=== PATIENT | female | born 1955 | race Two or more races ===

== ENCOUNTER → 2024-10-03 | Outpatient (CLI) | payer MEDICARE, BC, SELFPAY ==
[2024-10-03 08:51] LABS: Basophils # (Auto) 0.1 Thou/mm3 (0.0-0.2); Basophils % (Auto) 1 % (0-2.5); Eosinophils # (Auto) 0.2 Thou/mm3 (0.0-0.5); Eosinophils % (Auto) 2 % (0-10); Hematocrit 43.3 % (36.0-46.0); Hemoglobin 14.1 g/dL (12.0-16.0); Immature Granulocytes % (Auto) 0 % (0-0); Immature Granulocytes Auto 0.03 Thou/mm3 (0.00-0.00); Lymphocytes # (Auto) 2.3 Thou/mm3 (1.0-4.8); Lymphocytes % (Auto) 27 % (10-50); Mean Corpuscular HGB Conc 32.6 g/dl (31.0-37.0); Mean Corpuscular Hemoglobin 25.3 pg (25.0-35.0); Mean Corpuscular Volume 78 fL (80-100); Monocytes # (Auto) 0.5 Thou/mm3 (0.0-0.8); Monocytes % (Auto) 7 % (0-12); Neutrophils # (Auto) 5.2 Thou/mm3 (1.8-7.7); Neutrophils % (Auto) 63 % (37-80); Nucleated Red Blood Cell % 0 /100 WBC (0); Platelet Count 329 Thou/mm3 (140-440); Red Blood Count 5.58 Miln/mm3 (4.00-5.20); White Blood Count 8.3 Thou/mm3 (3.6-11.0)
[2024-10-03 09:04] LABS: Glucose Estimated Average 105 mg/dL (80-131); Hemoglobin A1C 5.3 % Hgb (4.8-6.0)
[2024-10-03 09:30] LABS: Alanine Aminotransferase 13 U/L (10-49); Albumin, Serum 4.4 gm/dL (3.4-4.8); Albumin/Globulin Ratio 1.6 (1.2-2.2); Alkaline Phosphatase 158 U/L (46-116); Anion Gap 6 (7-16); BUN/Creatinine Ratio 21 Ratio (12-20); Bilirubin,Direct 0.5 mg/dL (0.0-0.3); Bilirubin,Total 1.8 mg/dL (0.3-1.2); Blood Urea Nitrogen 17 mg/dL (9-23); Calcium 9.7 mg/dL (8.3-10.6); Calcium (Corrected) 9.7 mg/dL (8.5-10.1); Carbon Dioxide 26.7 mMol/L (20.0-31.0); Cardiac Risk Estimate 3.8 RATIO (3.7-5.6); Chloride 107 mMol/L (98-107); Cholesterol 180 mg/dL (132-200); Creatinine (Component) 0.8 mg/dL (0.6-1.3); Globulin 2.8 gm/dL (2.3-3.5); Glucose 107 mg/dL (74-106); HDL Cholesterol 48 mg/dL (40-60); LDL Cholesterol,Calculated 103 mg/dL (0-130); Osmolality,Calculated 280 (275-295); Potassium 4.2 mMol/L (3.4-5.1); Sodium 140 mMol/L (136-145); Total Protein 7.2 gm/dL (5.7-8.2); Triglycerides 146 mg/dL (30-150); eGFR > 60 See Note
[2024-10-03 09:38] LABS: Aspartate Amino Transferase 15 U/L (0-34)
== END | disposition home or self-care (01) ==
LOC: COPL 07:09
PROVIDERS: PCP Family Medicine; Referring Provider Student in an Organized Health Care Education/Training Program; Visit Provider Student in an Organized Health Care Education/Training Program
DX: B35.1 Tinea unguium (principal); I10 Essential (primary) hypertension
CPT/HCPCS: 36415; 80053; 80061; 82248; 83036; 85025

== ENCOUNTER → 2024-11-06 | Outpatient (CLI) | payer MEDICARE, BC, SELFPAY ==
--- NOTE | 2024-11-06 08:45 | XR_ITS ---
Examination: Screening digital mammography, bilateral Computer aided detection 3-D breast Tomosynthesis, bilateral Date and time of exam: November 06, 2024 0830 hours Compared to mammograms dating to December 11, 2011 Indication: Screening Technique: Nonmagnified MLO, CC views of the breasts to been obtained, reconstructed from 3-D Tomosynthesis images. R2 computer aided detection program utilized for evaluation of suspicious masses and/or abnormal calcifications. 3-D Tomosynthesis images obtained. Findings: Scattered areas of fibroglandular density Bilateral benign skin lesions 10 mm nodule retroareolar region right breast, partially indistinct margins Impression: BI-RADS Category 0: Incomplete: Need additional imaging evaluation Recommend follow-up spot tomographic views retroareolar nodule right breast, right breast sonography to complete the workup
== END | disposition home or self-care (01) ==
LOC: CDIM 08:19
PROVIDERS: Referring Provider Family Medicine; Visit Provider Family Medicine
DX: Z12.31 Encounter for screening mammogram for malignant neoplasm of breast (principal); R92.8 Other abnormal and inconclusive findings on diagnostic imaging of breast; N63.41 Unspecified lump in right breast, subareolar
CPT/HCPCS: 77063; 77067

== ENCOUNTER 2024-11-21 01:37 | Observation (INO) | payer MEDICARE, BC, SELFPAY ==
[2024-11-21] VITALS (33 sets, daily range): BP systolic 92–255; BP diastolic 53–143; PULSE 69–91; RESP 12–26; TEMP 36–36.9; O2SAT 89–99; BMI 33.2
--- NOTE | 2024-11-21 01:40 | EKG_ITS ---
[facility] Test Date: 2024-11-21 Pat Name: KULWANT AMEZCUA Department: Room: - Gender: Female Corporate Quality Engineer: : 1955 Requested By: ED Temporary Provider Order Number: [id number] Reading MD: ED Temporary Provider Measurements Intervals [place] Rate: 73 P: 51 GA: 180 QRS: -12 QRSD: 91 T: 28 QT: 371 QTc: 411 Interpretive Statements SINUS RHYTHM POSSIBLE ANTERIOR MYOCARDIAL INFARCTION , PROBABLY OLD [30 ms Q WAVE IN V3/V4, OR R < 0.2 mV IN V4] No previous ECG available for comparison /store/S0/[id number].pdf
--- NOTE | 2024-11-21 01:54 | PD.EDRME ---
Rapid Medical Screening Exam E Arrival date/time: 11/21/24 01:37 69-year-old female with past medical history of hypertension and paternal history of [place] presents emergency department complaining of chest pain that radiates to left arm and upper neck that started at midnight today. Chief Complaint: Chest Pain Vital signs: Vital Signs Temperature 98.3 F 11/21/24 01:48 Pulse Rate 77 11/21/24 01:48 Respiratory Rate 18 11/21/24 01:48 Blood Pressure 209/113 H 11/21/24 01:48 Pulse Oximetry (%) 98 11/21/24 01:48 Oxygen Delivery Method Room Air 11/21/24 01:48 Vital signs reviewed by provider: Yes
--- NOTE | 2024-11-21 02:21 | XR_ITS ---
Examination: AP chest single view TECHNIQUE: AP portable upright chest single view Exam date and time: November 21, 2024 0221 hours Comparison March 05, 2021 INDICATIONS: Chest pain beginning several hours ago. FINDINGS: Normal heart size Lungs are clear. Prominent osteopenia IMPRESSION: No active disease
[2024-11-21] MEDS: LABETALOL INJ 5 MG/ML VIAL 20 ML 10 MG IVP (03:06)
[2024-11-21 03:07] LABS: Basophils # (Auto) 0.1 Thou/mm3 (0.0-0.2); Basophils % (Auto) 1 % (0-2.5); Eosinophils # (Auto) 0.2 Thou/mm3 (0.0-0.5); Eosinophils % (Auto) 2 % (0-10); Hematocrit 44.9 % (36.0-46.0); Hemoglobin 14.5 g/dL (12.0-16.0); Immature Granulocytes % (Auto) 0 % (0-0); Immature Granulocytes Auto 0.03 Thou/mm3 (0.00-0.00); Lymphocytes # (Auto) 2.7 Thou/mm3 (1.0-4.8); Lymphocytes % (Auto) 23 % (10-50); Mean Corpuscular HGB Conc 32.3 g/dl (31.0-37.0); Mean Corpuscular Hemoglobin 24.9 pg (25.0-35.0); Mean Corpuscular Volume 77 fL (80-100); Monocytes # (Auto) 0.8 Thou/mm3 (0.0-0.8); Monocytes % (Auto) 7 % (0-12); Neutrophils % (Auto) 68 % (37-80); Nucleated Red Blood Cell % 0 /100 WBC (0); Platelet Count 314 Thou/mm3 (140-440); RDW Standard Deviation 39.8 fL (36.4-46.3); Red Blood Count 5.82 Miln/mm3 (4.00-5.20); White Blood Count 11.8 Thou/mm3 (3.6-11.0)
[2024-11-21 03:13] LABS: Alanine Aminotransferase < 7 U/L (10-49); Albumin, Serum 4.5 gm/dL (3.4-4.8); Albumin/Globulin Ratio 1.5 (1.2-2.2); Alkaline Phosphatase 137 U/L (46-116); Anion Gap 8 (7-16); Aspartate Amino Transferase 14 U/L (0-34); BUN/Creatinine Ratio 19 Ratio (12-20); Bilirubin,Total 0.6 mg/dL (0.3-1.2); Blood Urea Nitrogen 17 mg/dL (9-23); Calcium 9.6 mg/dL (8.3-10.6); Calcium (Corrected) 9.6 mg/dL (8.5-10.1); Carbon Dioxide 27.4 mMol/L (20.0-31.0); Chloride 106 mMol/L (98-107); Creatinine (Component) 0.9 mg/dL (0.6-1.3); Estimated Creatinine Clearance 57.2 mL/min (>60); Globulin 3.1 gm/dL (2.3-3.5); Glucose 103 mg/dL (74-106); Magnesium 2.1 mg/dL (1.6-2.6); Osmolality,Calculated 282 (275-295); Sodium 141 mMol/L (136-145); Total Protein 7.6 gm/dL (5.7-8.2); Troponin I < 0.020 ng/mL (0.0-0.045); eGFR > 60 See Note
--- NOTE | 2024-11-21 03:15 | EDNOTE_ITS ---
ED Chest Pain RME/HPI General Chief Complaint: Chest Pain Stated Complaint: CHEST PAIN X 90 MIN Time Seen by Provider: 11/21/24 02:45 Arrival date/time: 11/21/24 01:37 RME / HPI RME / HPI narrative: 11/21/24 01:37 Chief complaint: Chest pain HPI: Patient is a 69-year-old female with past medical history of essential hypertension, diverticulosis and significant family history of [place], presented to the emergency department complaining of substernal chest pain that radiates to left arm and upper neck that started at midnight today. She describes her pain as substernal, radiaitng to the back, sharp in nature and 8/10 in intensity. She has some SOB earlier in the night when she was taking care of her twin grandchildren. However her pain started suddenly while she was asleep and lasted for about 45 minutes - 1 hour. There were no exacerbating and relieving factors, her gave her Nitro SL x1, which provided minimal reflief. Patient has never experienced these symptoms in the past. She denies any recent infections, last common cold was 2 months ago and resolved spontaneously. She had full cardiac work up 2 years ago, all results negative at that time. She is otherwise active. In the ED, her symptoms improved to 4-5/10 in intensity. HEART score of 7, putting patient at high risk of MACE 50-65% Medication list: Clonidine Losartan Metoprolol XL Hydroxyzine Terbinafine Hydrocrotisone TOP Mupirocin TOP Past surgical history: Gastric tumor, benign - 2019 Hysterectomy - 2019 Allergies: NKFDA Social history: Marital?Status:? Tobacco?Use:?Denies ETOH?Use:?Socially Drug?Note:?Denies Social?History?Note:?Lives?at home with? Family history: Mother - [place] @ 57 yo Father - [place] @ 53 yo, MD complaint: chest pain Onset (ago): hour(s) Pain location: substernal Related Data Home Medications ?Medication ?Instructions ?Recorded ?Confirmed losartan 100 mg tablet 100 mg PO QDAY 12/31/23 11/21/24 metoprolol succinate 50 mg 100 mg PO 1XD 12/31/23 11/21/24 tablet,extended release 24 hr clonidine HCl 0.1 mg 0.1 mg PO BID 11/21/24 11/21/24 tablet,extended release,12 hr Allergies Allergy/AdvReac Type Severity Reaction Status Date / Time No Known Allergies Allergy Verified 12/31/23 10:45 Review of Systems Review of Systems Narrative Review of Systems: GENERAL: Denies fevers/chills or diaphoresis. HEENT: Denies headache or visual/hearing changes. Denies nasal discharge. NEURO: Denies unusual weakness or difficulty speaking. CARDIO: central chest pain, radiating to the back and down the LT arm, denies palpitations. PULM: Denies SOB, coughing, or wheezing. GI: Denies abdominal pain, N/V/C/D. Reports having BMs URO: Denies burning/itching/pain/urinary changes. SUPERVISOR FINAL: Denies menstrual changes, hot flashes. MSK/EXT/SKIN: Denies joint/skeletal/muscle pain, issues/changes in upper or lower extremities, itchiness, or superficial pain. PSYCH: Cooperative, pleasant mood & affect. The rest of the review of systems is otherwise negative. ED Exam Narrative Physical exam: Constitutional Alert, oriented x4 and comfortable HEENT Vision grossly intact. Patent nares. Trachea midline. Respiratory Chest normal on inspection and clear to auscultation bilaterally. Cardiovascular S1 and S2 audible, RRR. Substernal chest pain 8/10, radiaitng to the back, r adiaitng down the LT arm. No murmurs or carotid bruit. No gross JVD. Abdominal Soft and non tender to palpation in all quadrants. BS + Genitourinary No bladder tenderness, no flank pain. Normal to palpation. Musculoskeletal Extremities tone within normal limits. No LE edema. Neurological CN II - XII grossly intact. Extremity motor and sensation grossly intact. Skin Warm, dry and intact. No apparent lesions. Psychiatric Patient has a good affect, is cooperative. Course Quality Measures VTE prophylaxis Orders Category Date Time Status CT Screening NOW Care 11/21/24 03:44 Active EKG (ED ONLY) *Do not use* NOW Care 11/21/24 01:40 Completed Consult to Cardiology Routine Cons 11/21/24 03:[address] chest w con Stat Exams 11/21/24 03:44 Taken EKG (ED Only) Stat Exams 11/21/24 01:40 Draft XR chest 1V portable Stat Exams 11/21/24 02:21 Taken B-Type Natriuretic Peptide Stat Lab 11/21/24 02:18 Completed CBC Stat Lab 11/21/24 02:18 Completed Comprehensive Metabolic Panel Stat Lab 11/21/24 02:18 Completed Drug Screen,Urine Stat Lab 11/21/24 03:12 Completed LDH (Lactate Dehydrogenase) Stat Lab 11/21/24 02:18 Completed Magnesium Stat Lab 11/21/24 02:18 Completed Partial Thromboplastin Time Stat Lab 11/21/24 02:18 Received Prothrombin Time with INR Stat Lab 11/21/24 02:18 Received Troponin I Stat Lab 11/21/24 02:18 Completed Urinalysis Stat Lab 11/21/24 03:12 Received Labetalol IV [Trandate IV] Med 11/21/24 03:00 Discontinued 10 mg IVP X1 ONE Labetalol IV [Trandate IV] Med 11/21/24 03:43 Discontinued 20 mg IVP X1 ONE Metoprolol Succinate Xl [Toprol Xl] Med 11/21/24 04:39 Discontinued 100 mg PO X1 ONE Morphine Inj Med 11/21/24 04:50 Active 2 mg IVP Q2H PRN Nitroglycerin Oint 2% [Nitro-paste Oint 2%] Med 11/21/24 03:44 Discontinued 1 inch TOP X1 ONE cloNIDine HCL [Catapres] Med 11/21/24 04:39 Discontinued 0.1 mg PO X1 ONE Vital Signs Vital signs: Vital Signs Temperature 98.3 F 11/21/24 01:48 Pulse Rate 77 11/21/24 01:48 Respiratory Rate 18 11/21/24 01:48 Blood Pressure 209/113 H 11/21/24 01:48 Pulse Oximetry (%) 98 11/21/24 01:48 Oxygen Delivery Method Room Air 11/21/24 01:48 Chest Pain MDM Narrative MDM Narrative:: Essential hypertension, hyperlipidemia and significant family history of [place] Patient data External records reviewed:: [facility] previous records and PCP records Clinical information provided by:: patient and spouse Social determinants that could affect healthcare access:: none Patient has the following chronic illnesses:: Mother - [place] @ 57 yo Father - [place] @ 53 yo, HEART score of 7, putting patient at high risk of MACE 50-65% How is presenting disease/condition affected by chronic disease/condition?: exacerbated by Evaluation data The following diagnostics were reviewed and interpreted by me:: lab results, radiology exam(s) and EKG tracing(s) Lab and/or radiology exams considered but not ordered:: CT chest Interpretation Summary: Cardiology consulted to for further cardiac work up, pending rule out type I NSTEMI Medications / Prescriptions Medications or Prescriptions considered but not ordered:: Nitro, Metoprolol, ASA, Morphine, SUNITA/ARB, Statin and Heparin gtt Medication administrations:: Medication Administration History Morphine Sulfate (Morphine Sulf Inj 10 Mg/Ml Vial) 2 mg IVP Q2H PRN PRN Reason: chest pain Discontinued Medications Clonidine (Clonidine Hcl 0.1 Mg Tablet) 0.1 mg PO X1 ONE Stop: 11/21/24 04:40 Last Admin: 11/21/24 05:06 Dose: 0.1 mg Documented By: TC Labetalol HCl (Labetalol Inj 5 Mg/Ml Vial 20 Ml) 10 mg IVP X1 ONE Stop: 11/21/24 03:01 Last Admin: 11/21/24 03:06 Dose: 10 mg Documented By: TC Labetalol HCl (Labetalol Inj 5 Mg/Ml Vial 20 Ml) 20 mg IVP X1 ONE Stop: 11/21/24 03:44 Last Admin: 11/21/24 03:54 Dose: 20 mg Documented By: TC Metoprolol Succinate (Metoprolol Succinate Xl 25 Mg Tabcr) 100 mg PO X1 ONE Stop: 11/21/24 04:40 Last Admin: 11/21/24 05:06 Dose: 100 mg Documented By: TC Nitroglycerin (Nitroglycerin Oint 2% 1 Inch Packet) 1 inch TOP X1 ONE Stop: 11/21/24 03:45 Last Admin: 11/21/24 03:54 Dose: 1 inch Documented By: TC continue Consultations Consultation(s) initiated? (list below): Yes Consultation #1 (Physician, Specialty, Details): Cardiology - Dr Reed Diagnosis Most likely diagnosis given after review of the tests above:: Chest pain, NSTEMI type I pending r/o Admission Indicated Admission indicated?: indicated Explain why admission is indicated or not indicated:: Cardiology consulted to for further cardiac work up. Admission Request Was there a request for admission?: No Disposition Plan Disposition Plan: other (specify) Discharge Plan Prescriptions/Referrals Prescriptions/Med Rec: No Action clonidine HCl 0.1 mg Tablet Extended Release 12 Hr 0.1 mg PO BID metoprolol succinate 50 mg tablet extended release 24 hr 100 mg PO 1XD losartan 100 mg tablet 100 mg PO QDAY Patient Comments: take 1 tablet by mouth once daily for blood pressure Referrals: Lorne Ortez MD [Primary Care Provider] - In 1 week Problem List Clinical Impression: Chest pain, ST elevation myocardial infarction (STEMI) Patient/Caregiver Discharge Instructions Print Language: Monegasque Stand Alone Forms: Gloria Award Info., Patient Portal Info Letter
[2024-11-21 03:27] LABS: LDH (Lactate Dehydrogenase) 165 U/L (120-246)
[2024-11-21 03:30] LABS: Collection Type, Urine Clean Catch
[2024-11-21 03:44] LABS: B-Type Natriuretic Peptide 86 pg/mL (0-100)
--- NOTE | 2024-11-21 03:44 | XR_ITS ---
Examination: CT chest with intravenous contrast 2-D sagittal and coronal reconstructions Exam date and time: November 21, 2024 0412 hrs. Indications: Chest pain secondary to hypertensive crisis today CTDI:vol (mGy) 18.76 DLP: (mGycm) 400 Technique: Multiple axial sections of the thorax have been obtained. Sections have been obtained, 3 mm slice thickness. Mediastinal and lung density settings have been obtained. Intravenous contrast administered, 100 cc Isovue-370. 2-D sagittal, coronal images obtained. Low dose protocols were performed. One or more of the following dose reduction techniques were used; automated exposure control, adjustment of the mA and/or KV according to patient size, use of iterative reconstruction technique. Findings: AP dimension ascending thoracic aorta 3.2 cm, no thoracic aortic aneurysmal dilatation or dissection Pulmonary artery segments are not enlarged, no pulmonary artery emboli No paratracheal tracheobronchial or bronchopulmonary adenopathy No pneumonia, pulmonary edema or pleural disease Mild enlargement left atrium Liver is mildly irregular contour Absent gallbladder Spleen is not enlarged No pancreatic mass Kidneys partially visualized no hydronephrosis Impression: No thoracic aortic aneurysmal dilatation or dissection Negative for pulmonary artery emboli No pneumonia, pulmonary edema or pleural disease
[2024-11-21 03:49] LABS: Amphetamine/Methamp Scrn,U Negative (Negative); Barbiturate Screen,Urine Negative (Negative); Benzodiazepines Screen,Urine Negative (Negative); Benzoylecgonine Screen, Ur Negative (Negative); Fentanyl Screen,Urine Negative (Negative); Opiate Screen,Urine Negative (Negative); THC Screen,Urine Negative (Negative)
[2024-11-21] MEDS: LABETALOL INJ 5 MG/ML VIAL 20 ML 20 MG IVP (03:54)
[2024-11-21] MEDS: NITROGLYCERIN OINT 2% 1 INCH PACKET TOP (03:54)
[2024-11-21] MEDS: cloNIDine HCL 0.1 MG TABLET PO ×3 (05:06→20:08)
[2024-11-21] MEDS: METOPROLOL SUCCINATE XL 25 MG TABCR 100 MG PO ×2 (05:06→14:38)
[2024-11-21 05:09] LABS: Bilirubin,Urine Negative (Negative); Blood,Urine Negative (Negative); Clarity,Urine Clear (Clear/Hazy); Color,Urine Colorless (Lt Yel-Yel); Glucose, Urine Negative (Negative); Ketones,Urine Negative (Negative); Leukocyte Esterase,Urine Negative (Negative); Nitrite,Urine Negative (Negative); Protein,Urine Negative (Neg - Trace); RBC,Urine 1 /hpf (0-3); Specific Gravity,Urine 1.009 (1.001-1.035); Squamous Epithelial Cell,Urine < 1 /hpf (0-5); Urobilinogen,Urine Negative mg/dL (0.0-1.0); WBC,Urine < 1 /hpf (0-5)
--- NOTE | 2024-11-21 05:18 | PRELIM_ITS ---
CT scan of the chest with intravenous contrast (axial sections with sagittal and coronal reformats) J anuary 2024 at 0411 hours Clinical History: Chest pain with hypertensive crisis.Comparison: No pr ior study is available for comparison. Findings:There is no filling defect within the pulmonary arter y divisions to suggest pulmonary thromboembolism. The mediastinum demonstrates no evidence of mass or lymphadenopathy. The thoracic aorta is unremarkable. There is no pericardial effusion. The lungs are clear. No evidence of pleural effusion or pneumothorax.The osseous structures are unremarkable.Statu s post cholecystectomy.Dilated left atrium.Small hiatus hernia.Impression:No CT evidence of pulmonary thromboembolism or other acute intrathoracic pathology.Dilated left atrium.Small hiatus hernia. Repo rt Electronically Signed By: Keith Ordaz 11/21/2024 5:17:01 AM [EST]
[2024-11-21 07:22] LABS: Prothrombin Time 10.7 Seconds (9.0-12.2)
--- NOTE | 2024-11-21 07:48 | PD.EDADDENDU ---
Emergency Room Addendum <Navya Gutierrez - Last Filed: 11/21/24 07:52> Addendum Narrative: 0600: Care assumed from Dr. Dupont and resident Dr. Loco, the previous shift emergency physician. Past medical, surgical, social and family history reviewed. Vitals and home medications reviewed. I will assume the care of the patient at this time, pending CT chest and final disposition. Please refer to the emergency department record for history and examination from initial visit.? Nursing notes reviewed by me. Vital signs reviewed by me. [facility] medical records reviewed by me. 0748: I spoke with hospitalist Dr. Gramajo regarding admission. Discussed patients PMHx, HPI, ED course, exam findings, labs, and radiology results. The hospitalist agree to accept the patient for admission. RADIOLOGY Ordering Physician: Aaron Dupont MD Date of Service: 11/21/24 Procedure(s): CT chest w con Accession Number(s): [id number] Impression: No thoracic aortic aneurysmal dilatation or dissection Negative for pulmonary artery emboli No pneumonia, pulmonary edema or pleural disease Dictated By: Isauro Mendez MD Signed By: <Electronically signed by Isauro Mendez MD in OV> <Mal Pruitt MD - Last Filed: 11/21/24 07:57> Addendum Narrative: 0600: Care assumed from Dr. Dupont and resident Dr. Loco, the previous shift emergency physician. Past medical, surgical, social and family history reviewed. Vitals and home medications reviewed. I will assume the care of the patient at this time, pending CT chest and final disposition. Please refer to the emergency department record for history and examination from initial visit.? Nursing notes reviewed by me. Vital signs reviewed by me. [facility] medical records reviewed by me. 0748: I spoke with hospitalist Dr. Gramajo regarding admission. Discussed patients PMHx, HPI, ED course, exam findings, labs, and radiology results. The hospitalist agree to accept the patient for admission. RADIOLOGY Ordering Physician: Aaron Dupont MD Date of Service: 11/21/24 Procedure(s): CT chest w con Accession Number(s): [id number] Impression: No thoracic aortic aneurysmal dilatation or dissection Negative for pulmonary artery emboli No pneumonia, pulmonary edema or pleural disease Dictated By: Isauro Mendez MD Signed By: <Electronically signed by Isauro Mendez MD in OV> I reviewed all diagnostic test results. My interpretation of the EKG is sinus rhythm with nonspecific ST?T changes. My review of the chest CT report is no acute findings. Blood tests and urine tests unremarkable. At this point, diagnoses include chest pain and hypertensive urgency. Treatment here included topical NTG, morphine, metoprolol, labetalol, and clonidine. Some improvement noted. We discussed the case with our field case manager and our hospitalist. About the presentation and exam and diagnostics and treatments here. And need of further care in the hospital. Will accept the patient. Mal Pruitt MD
--- NOTE | 2024-11-21 08:07 | ECHO_ITS ---
Transthoracic Echo Report Ht (in): 61 Wt (lb): 176 Exam Location: Medical Device Sales Consultant Status: Inpatient Fabric Machine Operator: Tata Church Indications: Procedure Performed: BP: 166 / 95 HR: 76 Rhythm: Sinus Technical Quality: Fair MEASUREMENTS (Male / Female) Normal Values 2D ECHO LV Diastolic Diameter PLAX 4.4 cm 4.2 - 5.9 / 3.9 - 5.3 cm LV Systolic Diameter PLAX 3.0 cm IVS Diastolic Thickness 1.0 cm 0.6 - 1.0 / 0.6 - 0.9 cm LVPW Diastolic Thickness 0.9 cm 0.6 - 1.0 / 0.6 - 0.9 cm LV Relative Wall Thickness 0.4 LVOT Diameter 1.7 cm LA Volume Index 21.6 cm?/m? 16 - 28 cm?/m? Ascending Aorta Diameter 3.2 cm M-MODE Aortic Root Diameter MM 2.6 cm LA Systolic Diameter MM 3.4 cm LA Ao Ratio MM 1.3 AV Cusp Separation MM 2.0 cm DOPPLER AV Peak Velocity 113.0 cm/s AV Peak Gradient 5.1 mmHg AV Mean Gradient 3.0 mmHg AV Velocity Time Integral 17.4 cm LVOT Peak Velocity 96.1 cm/s LVOT Peak Gradient 3.7 mmHg LVOT Velocity Time Integral 17.9 cm LVOT Cardiac Index 1635.0 cm?/min?m? AV Area Cont Eq vti 2.3 cm? AV Area Cont Eq pk 1.9 cm? MV Peak Velocity 80.3 cm/s MV Peak Gradient 2.6 mmHg MV Mean Velocity 47.3 cm/s MV Mean Gradient 1.0 mmHg MV Area PHT 2.9 cm? Mitral E Point Velocity 51.4 cm/s Mitral A Point Velocity 62.6 cm/s Mitral E to A Ratio 0.8 LV E' Lateral Velocity 9.6 cm/s Mitral E to LV E' Lateral Ratio 5.4 LV E' Septal Velocity 4.3 cm/s Mitral E to LV E' Septal Ratio 11.8 TR Peak Velocity 218.5 cm/s TR Peak Gradient 19.1 mmHg FINDINGS Left Ventricle Normal left ventricular size, wall thickness, systolic function with no obvious regional wall motion abnormalities. The ejection fraction is visually estimated at 55-60%. Right Ventricle The right ventricle is normal in size and systolic function. The estimated right ventricular systoli c pressure, 27 mmHg. RAP 5. Left Atrium The left atrium is normal by two-dimensional, color flow and Doppler imaging with no structural abnormalities, no thrombus formation present. Right Atrium The right atrium is normal by two-dimensional imaging, color flow and Doppler imaging with no struct ural abnormalities, no thrombus formation present. Atrial Septum The interatrial septum appears normal with no evidence of a shunt. Aorta The aorta is normal by two-dimensional, color flow and Doppler interrogation. Mitral Valve The mitral valve is normal by two-dimensional, color flow and Doppler interrogation. There is mild mitral valve regurgitation. Aortic Valve The aortic valve is trileaflet and normal by two-dimensional, color flow and Doppler interrogation. There is mild aortic valve regurgitation. Tricuspid Valve The tricuspid valve is normal by two-dimensional, color flow and Doppler interrogation. There is mil d tricuspid valve regurgitation. Pulmonic Valve There is no significant pulmonic valve regurgitation. Vessels The pulmonary artery appears normal. The inferior vena cava pulmonary and hepatic veins appear kev l. Pericardium The pericardium is normal by two-dimensional imaging. There is no significant pericardial effusion. CONCLUSIONS Indication: ACS Normal LV size and function. Stage I diastolic dysfunction. Estimated EF 55-60% Normal RV size and function. Mild MR, AI, TR. Ben Reed (Electronically Signed) Final Date: 21 November 2024 17:41
[2024-11-21] MEDS: ASPIRIN EC 81 MG TABEC PO (09:19)
[2024-11-21] MEDS: RINGERS LACTATED 1000 ML 1,000 ML 75 ML IV (09:20)
--- NOTE | 2024-11-21 09:29 | ESCONSULT_ITS ---
<Statement entered by Ben Reed MD - 11/22/24 02:19> I have personally seen and examined the patient separately on the above date of service and discussed the plan of care with the resident. I reviewed the resident Dr. Solano consultation note and agree with the resident findings and plan in the note above and have also edited the documentation to reflect my findings and plan. A 69-year-old female with a past medical history of essential hypertension for more than 20 years, obesity, diverticulosis, family history of heart disease with father of heart rate in 60s and mother in her 80s, diabetes and hypertension presented to the emergency department for further evaluation of chest pain and chest pressure that woke her up from sleep around midnight 12:30 AM today. Patient woke up from sleep with severe 8/10 chest pressure like sensation which was mostly substernal radiating to the back and associated with tingling sensation but no radiation to the arms along with a headache. Patient stood up and tried to walk around which improved a little and she used her 's sublingual nitroglycerin which did not help and she immediately came to the emergency department in which his pressure improved after the nitroglycerin patch was placed. Patient did have previous episode of chest pain and was evaluated with stress test at [facility] but was apparently negative. Patient recently has been having uncontrolled blood pressure and needs to see her primary doctor who recently started on clonidine. Patient has been on metoprolol XL as well as losartan for many years. In the emergency department patient blood pressure was elevated at 219/130 mmHg and patient was given IV labetalol along with nitroglycerin patch as well as her home medications of metoprolol succinate as well as her clonidine. Cardiology was consulted for further evaluation of the chest pain as well as elevated blood pressure. Retired now and used to work in the food industry and denied any kind of's smoking alcohol or drug history. Labs showed normal CBC, magnesium of 2.1, normal BMP with normal renal function. EKG showed normal sinus rhythm with minimal ST depressions in the inferior leads II, III, aVF along with T wave inversions in 3 and aVF and poor R wave progression in the precordial leads. Troponins [address] chest was done which was negative for PE as well as any aortic dissection but showed mild dilation of ascending aorta at 3.2 cm. Unstable angina-rule out acute coronary syndrome. Patient presented with typical chest pain features as noted and woke up in the middle of the night from sleep with severe chest pressure along with minimal ST depressions in the inferior leads along with some T wave inversions. Patient has risk factors including hypertension obesity as well as family history of heart disease and has been having frequent chest pain episodes previously and had workup done few years ago. Will need to rule out acute coronary syndrome and patient explained the patient is having arthritis of performing a left heart cardiac attrition including the risks of bleeding, heart attack, stroke and in detail. Patient agreeable for the procedure and has been n.p.o. since this morning and will plan to do the ventricular catheter this morning. Aspirin 325 mg x 1 stat along with statin and continue beta-tiana. Echocardiogram ordered to rule out regional wall motion abnormalities. TSH A1c as well as lipid profile for further cardiac risk stratification. Hypertensive urgency: Patient presented with a blood pressure of 209/130 mmHg. Patient also complained of some headache. CT chest ruled out any kind of aortic dissection and pulmonary embolism. Patient does have evidence of LVH on the EKG indicating chronic hypertension which she had more than for 20 years. Patient apparently was previously well-controlled on metoprolol XL as well as losartan. Recently apparently patient was started on clonidine by the PCP couple of days ago. Recommend to continue losartan 100 mg once daily and change metoprolol XL to Coreg 12.5 mg twice daily and hold the clonidine for now and continue to uptitrate Coreg up to 25 mg twice daily and the blood pressure still elevated and patient she needs to be started on calcium channel blockers before initiating any kind of clonidine. Management of rest of the medical conditions as per primary team and other consultants. Thank you for the consult and allowing me to participate in the care of the patient. Cardiology will continue to follow. Ben Reed M.D. Interventional Cardiology HPI Data of Consult Requesting Physician: Akin Gramajo MD Admitting Provider: Akin Gramajo MD Attending Provider: Akin Gramajo MD Primary Care Provider: Lorne Ortez MD Consult Narrative History of present illness: Renae is a 69 y/o female with a past medical history of primary hypertension and diverticulosis comes to the ED for an evaluation of chest pain and pressure, rated a 8/10 upon onset, occurring at midnight while asleep, lasting 2 hours, located midsternal radiating to the back with associated headache, tingling of the tongue but no nausea, diaphoresis, changes in vision, or syncope, not relieved with nitro x 1, improved with exertion. Patient reports having symptoms similar to this before in the past about 4 to 5 years ago, though symptoms were worse but the chest pain she experienced back then was worse, and was admitted in [facility] in which they evaluated her further. She was told that her heart was fine and was given muscle relaxers. She also notes that she seen Dr. Calderon before about 4 to 5 years ago, had a stress test done and it was unremarkable. She notes that she takes 3 blood pressure medicines which are losartan, metoprolol, and clonidine which she recently started. She says her primary care doctor is Dr. Ortez. She notes that she has a blood pressure machine at home and says that her blood pressure is around the 130s systolic, however there are times where the systolic blood pressure reaches to 160. She feels concerned that she does not think her blood pressure is under controlled with the 3 medicines she is on. She endorses compliance to taking her blood pressure medicine as well. She denies taking any hydroxyzine though it was prescribed to her, and denies feeling any anxiety or problems with her mood and does not think that this is some sort of panic attack. She also states that she denies any recently sick contacts and denies feeling fever, chills or being sick recently. She says for new years she went up to [place] but did not do much else there. She denies hiking recently. She says currently her chest pain right now is a 3/10 but she still has the diffuse headache. ED course: She arrived to the ER afebrile, unremarkable heart rate, satting 98% on room air however came with a blood pressure of 209/113. She was worked up and was found to have BUN/creatinine of 17 and 0.9, white blood cell count of 11.8, hemoglobin of 14.5, magnesium of 2.1, troponin negative x 1, sodium and potassium of 141 and 4.0 respectively. EKG was done and showed NSR, rate of 72, no ST changes or evidence of branch block. CT Chest w contrast was done and showed no thoracic aortic aneurysmal dilatation or dissection, negative for pulmonary artery emboli, no pneumonia, pulmonary edema or pleural disease, Ascending thoracic aorta was 3.2 cm. She was given labetalol 10 mg x 1, labetalol 20 mg x 1, nitroglycerin patch x 1, metoprolol succinate 100 mg x 1, clonidine 0.1 mg x 1. Medicine and cardiology were consulted. Past medical history: As above Surgeries: Cholecystectomy, hysterectomy, gastric polyp removal, nephrostomy? Allergies: No known allergies Meds: Clonidine 0.1 mg twice daily, losartan 100 mg daily, metoprolol succinate 100 mg daily Family history: Parents do not have diabetes, however have had heart attacks before in both parents, dad with first heart attack in early 60s, mother with first heart attack in 80s. Siblings have diabetes and hypertension Social history: Patient was born and partially raised in [place], went to [place], and then came in to [place] in 1962. Has worked in the [employer] industry since. She denies any other global travel other than [place]. Says she does not smoke, drink or do any drugs or have a history of them. cc:: cc: Akin Gramajo MD Review of Systems Review of Systems Narrative Review of Systems: Constitutional: No fever, chills, fatigue, weakness, weight loss HEENT: No eye pain, vision loss, ear pain, hearing loss, dysphagia, Cardiovascular: +Midsternal chest pain, no palpitations, edema, pain with walking Respiratory: No cough, shortness of breath, wheezing GI: No NVD, abdominal pain, constipation, blood in stool, loss of appetite, heartburn Extremities: No presence of pitting edema MSK: + back pain, no joint pain, joint swelling Neuro: + Headache, No dizziness, numbness, weakness, seizures, tremors Psych: No anxiety, depression Exam Vital Signs Temp Pulse Resp BP Pulse Ox O2 Del Method 98.4 F 77 19 135/83 H 96 Room Air 11/21/24 08:09 11/21/24 08:09 11/21/24 08:09 11/21/24 08:09 11/21/24 08:09 11/21/24 08:09 Narrative Exam General: AAOx3, NAD, obese pleasant female, wears glasses HEENT: Dry mucous membranes, conjunctiva clear, EOMI, PERRLA, Cardiovascular: S1, S2, radial pulses +2 bilat, RRR Pulmonary: CTAB bilat no cough, no wheezing GI: No tenderness to light or deep palpitation, no guarding, rigidity, rebound tenderness or distension Extremities: No presence of trace or pitting edema in lower extremities bilaterally, dorsalis pedis pulses +2 bilaterally Neuro: AAOx3, no focal motor or sensory deficits in the UE or LE bilat Psych: Good judgement, thought and behavior. Cooperative Results Labs 11/21/24 02:18 11/21/24 02:18 Labs: Short CBC 11/21/24 Range/Units 02:18 WBC 11.8 H (3.6-11.0) Thou/mm3 Hgb 14.5 (12.0-16.0) g/dL Hct 44.9 (36.0-46.0) % Plt Count 314 (140-440) Thou/mm3 BMP 11/21/24 02:18 Sodium 141 Potassium 4.0 Chloride 106 Carbon Dioxide 27.4 BUN 17 Creatinine 0.9 Glucose 103 Calcium 9.6 Cardiac Enzymes 11/21/24 Range/Units 02:18 Troponin I < 0.020 (0.0-0.045) ng/mL Liver Function 11/21/24 Range/Units 02:18 Total Bilirubin 0.6 (0.3-1.2) mg/dL AST 14 (0-34) U/L ALT < 7 L (10-49) U/L Alkaline Phosphatase 137 H (46-116) U/L Albumin 4.5 (3.4-4.8) gm/dL Urine 11/21/24 Range/Units 03:12 Urine Color Colorless A (Lt Yel-Yel) Urine Clarity Clear (Clear/Hazy) Urine pH 7.0 (5.0-7.0) Ur Specific [place] 1.009 (1.001-1.035) Urine Protein Negative (Neg - Trace) Urine Glucose (UA) Negative (Negative) Quality Measures Quality Measures VTE prophylaxis Advance care planning discussed with:: patient Medications Home Medications and Allergies Home Medications ?Medication ?Instructions ?Recorded ?Confirmed ?Type losartan 100 mg tablet 100 mg PO QDAY 12/31/23 11/21/24 History metoprolol succinate 50 mg 100 mg PO DAILY 12/31/23 11/21/24 History tablet,extended release 24 hr clonidine HCl 0.1 mg 0.1 mg PO BID 11/21/24 11/21/24 History tablet,extended release,12 hr Allergies Allergy/AdvReac Type Severity Reaction Status Date / Time No Known Allergies Allergy Verified 12/31/23 10:45 Visit Medications Acetaminophen (Acetaminophen 325 Mg Tablet) 650 mg PO Q6H PRN PRN Reason: Fever >101.5 Stop: 12/21/24 08:06 Acetaminophen (Acetaminophen 325 Mg Tablet) 650 mg PO Q6H PRN PRN Reason: PAIN SCALE 1-3 (mild Stop: 12/21/24 08:06 Hydrocodone Bitart/Acetaminophen (Hydrocodone/Apap 10/325 Tab) 1 tab PO Q4H PRN PRN Reason: PAIN SCALE 4-6 (Moderate Stop: 11/26/24 08:06 Heparin Sodium (Porcine) (Heparin Sod Inj 5000 Unit/Ml Vial) 5,000 unit SC Q8HR [facility] Stop: 12/05/24 13:59 Lactated Ringer's (Lactated Ringers) 1,000 mls @ 75 mls/hr IV .[id number] [facility] Stop: 11/22/24 08:14 Last Admin: 11/21/24 09:20 Dose: 75 mls/hr Morphine Sulfate (Morphine Sulf Inj 10 Mg/Ml Vial) 2 mg IVP Q2H PRN PRN Reason: chest pain Ondansetron HCl (Ondansetron Inj 2 Mg/Ml Inj 2 Ml) 4 mg IV Q6H PRN; Protocol PRN Reason: NAUSEA OR VOMITING Stop: 12/21/24 08:06 Discontinued Medications Aspirin (Aspirin Ec 81 Mg Tabec) 81 mg PO X1 ONE Stop: 11/21/24 08:11 Last Admin: 11/21/24 09:19 Dose: 81 mg Clonidine (Clonidine Hcl 0.1 Mg Tablet) 0.1 mg PO X1 ONE Stop: 11/21/24 04:40 Last Admin: 11/21/24 05:06 Dose: 0.1 mg Labetalol HCl (Labetalol Inj 5 Mg/Ml Vial 20 Ml) 10 mg IVP X1 ONE Stop: 11/21/24 03:01 Last Admin: 11/21/24 03:06 Dose: 10 mg Labetalol HCl (Labetalol Inj 5 Mg/Ml Vial 20 Ml) 20 mg IVP X1 ONE Stop: 11/21/24 03:44 Last Admin: 11/21/24 03:54 Dose: 20 mg Metoprolol Succinate (Metoprolol Succinate Xl 25 Mg Tabcr) 100 mg PO X1 ONE Stop: 11/21/24 04:40 Last Admin: 11/21/24 05:06 Dose: 100 mg Nitroglycerin (Nitroglycerin Oint 2% 1 Inch Packet) 1 inch TOP X1 ONE Stop: 11/21/24 03:45 Last Admin: 11/21/24 03:54 Dose: 1 inch Assessment & Plan Plan Assessment: Renae is a 69-year-old female with a past medical history of hypertension and diverticulosis who is currently admitted for hypertensive emergency. #Hypertensive emergency #Unstable angina #Hx of hypertension Patient came in with a blood pressure of 209/113 Patient is symptomatic with headache Chest CT with contrast: Showed no dissection, pulmonary edema, pneumonia, or pulmonary artery emboli. Ascending thoracic aorta at 3.2 cm No evidence of end organ kidney damage Patient has had stress test 4 to 5 years ago that was unremarkable Patient also has had the symptoms of chest pain before Initial troponins negative, no ST changes on EKG, NSR Repeat EKG shows some possible ST depression in lead II and possible T wave inversions in V1 Patient could be experiencing rebound hypertension from not taking clonidine Patient will need further cardiac workup and cardiac stratification Does not see gate clerk anymore No echo on file Due to patient's severity of symptoms and being awaken at night, there could be cardiac ischemia going on that will need to be evaluated with cardiac cath Will consider resuming Coreg for new antihypertensive agent at some point Plan: ?Gradually reduce blood pressure up to 25% systolic reduction for first 24 hours ?L heart Cath ?ASA 325 mg x1 ?Follow-up echo ?F/u TSH, A1c, lipid panel Patient seen and care discussed with my attending physician, Dr. Brianna Orourke, PGY-1
--- NOTE | 2024-11-21 09:52 | PC.CC ---
Pt Renae Keen is a 69 yr old female, admitted to hospitalist services for typical chest pain. ASW met with pt at bedside to complete initial assessment. At time of encounter pts Nilson Keen [phone] is at bedside. Pt noted to be alert and oriented to person, place and situation. Pt expressed understanding admission orders. Pt able to confirm all demographic information on face sheet. Pt is from home [address] Pt lives in the home with her . Pt identifies her as surrogate DM. Pt is retired. At baseline pt reports being independent with ambulation and in completion of her ADLs. Pt is not diabetic and is not on dialysis. Pt does not require supplemental O2 in the home. Pt is followed by Dr. Lorne Ortez for primary care. At time of D/c pt will return home, with providing transport.
[2024-11-21 10:44] LABS: Troponin I < 0.020 ng/mL (0.0-0.045)
[2024-11-21 10:56] LABS: Cardiac Risk Estimate 3.7 RATIO (3.7-5.6); Cholesterol 179 mg/dL (132-200); HDL Cholesterol 49 mg/dL (40-60); LDL Cholesterol,Calculated 98 mg/dL (0-130); Triglycerides 158 mg/dL (30-150)
--- NOTE | 2024-11-21 11:17 | PC.NURSE ---
Dr Walls cardiology at bedside speaking with patient.
--- NOTE | 2024-11-21 11:37 | ESHP_ITS ---
Documentation for date of: 11/21/24 [facility] History of Present Illness History of present illness: Ms. Macdonald is 69 year old female with a past medical history significant of primary hypertension and diverticulosis comes to the ED complaining of chest pain rated a 8/10 upon onsetPt describes the pain to be pressure like, acute onset while she was asleep around midnight. Pain is located midsternal radiating to the back with associated headache, tingling of the tongue and right arm all the way to right hand. Pt denies but nausea, diaphoresis, changes in vision, or syncope, not relieved with nitro x 1, improved with exertion. Patient reports having symptoms similar about 4 to 5 years ago, and cardio work up including stress test was all negative, at that time pt was sent home with prescription of Baclofan. ED course: initial vitals include blood pressure 209/113, WBC 11.8, MCV 77, MCH 24.9 and all other labs including urinalysis unremarkable troponin negative x 1 EKG was done and showed NSR, rate of 72, no ST changes or evidence of branch block. CT Chest w contrast was done and showed no thoracic aortic aneurysmal dilatation or dissection, negative for pulmonary artery emboli, no pneumonia, pulmonary edema or pleural disease, Ascending thoracic aorta was 3.2 cm. In the ED patient was given labetalol 10 mg x 1, labetalol 20 mg x 1, nitroglycerin patch x 1, metoprolol succinate 100 mg x 1, clonidine 0.1 mg x 1 and cardiology were consulted. PMH: Hypertension diverticulosis PSH: Cholecystectomy, hysterectomy, gastric polyp removal, nephrostomy? Meds: Clonidine 0.1 mg twice daily, losartan 100 mg daily, metoprolol succinate 100 mg daily Review of Systems Review of Systems Systems Reviewed: All systems reviewed, normal except as documented Exam Vital Signs Temp Pulse Resp BP Pulse Ox O2 Del Method 98.4 F 77 19 135/83 H 96 Room Air 11/21/24 08:09 11/21/24 08:09 11/21/24 08:09 11/21/24 08:09 11/21/24 08:09 11/21/24 08:09 Narrative Exam GENERAL: A&Ox3 . Awake, Not in acute distress NEURO: no focal neurological deficits HEENT: Atraumatic, Normocephalic. mucous membranes moist. Eyes open, symmetrical, & clear HEART: Normal Heart Sounds LUNGS: Clear to auscultation with no wheezing or crackles. ABDOMEN: soft, non-distended, non-tender, bowel sounds heard, no guarding or rebound tenderness SKIN: No Rash or ecchymoses EXTREMITIES: No edema, tenderness, able to move all 4 extremities, pedal pulses palpated Results: Labs 11/21/24 02:18 11/21/24 02:18 Labs: Short CBC 11/21/24 Range/Units 02:18 WBC 11.8 H (3.6-11.0) Thou/mm3 Hgb 14.5 (12.0-16.0) g/dL Hct 44.9 (36.0-46.0) % Plt Count 314 (140-440) Thou/mm3 BMP 11/21/24 02:18 Sodium 141 Potassium 4.0 Chloride 106 Carbon Dioxide 27.4 BUN 17 Creatinine 0.9 Glucose 103 Calcium 9.6 Cardiac Enzymes 11/21/24 11/21/24 Range/Units 02:18 09:32 Troponin I < 0.020 < 0.020 (0.0-0.045) ng/mL Liver Function 11/21/24 Range/Units 02:18 Total Bilirubin 0.6 (0.3-1.2) mg/dL AST 14 (0-34) U/L ALT < 7 L (10-49) U/L Alkaline Phosphatase 137 H (46-116) U/L Albumin 4.5 (3.4-4.8) gm/dL Urine 11/21/24 Range/Units 03:12 Urine Color Colorless A (Lt Yel-Yel) Urine Clarity Clear (Clear/Hazy) Urine pH 7.0 (5.0-7.0) Ur Specific [place] 1.009 (1.001-1.035) Urine Protein Negative (Neg - Trace) Urine Glucose (UA) Negative (Negative) Quality Measures Quality Measures VTE prophylaxis Advance care planning discussed with:: patient Medications Home Medications and Allergies Home Medications ?Medication ?Instructions ?Recorded ?Confirmed ?Type losartan 100 mg tablet 100 mg PO QDAY 12/31/23 11/21/24 History metoprolol succinate 50 mg 100 mg PO 1XD 12/31/23 11/21/24 History tablet,extended release 24 hr clonidine HCl 0.1 mg 0.1 mg PO BID 11/21/24 11/21/24 History tablet,extended release,12 hr Allergies Allergy/AdvReac Type Severity Reaction Status Date / Time No Known Allergies Allergy Verified 12/31/23 10:45 Visit Medications Acetaminophen (Acetaminophen 325 Mg Tablet) 650 mg PO Q6H PRN PRN Reason: Fever >101.5 Stop: 12/21/24 08:06 Acetaminophen (Acetaminophen 325 Mg Tablet) 650 mg PO Q6H PRN PRN Reason: PAIN SCALE 1-3 (mild Stop: 12/21/24 08:06 Hydrocodone Bitart/Acetaminophen (Hydrocodone/Apap 10/325 Tab) 1 tab PO Q4H PRN PRN Reason: PAIN SCALE 4-6 (Moderate Stop: 11/26/24 08:06 Heparin Sodium (Porcine) (Heparin Sod Inj 5000 Unit/Ml Vial) 5,000 unit SC Q8HR [facility] Stop: 12/05/24 13:59 Lactated Ringer's (Lactated Ringers) 1,000 mls @ 75 mls/hr IV .[id number] [facility] Stop: 11/22/24 08:14 Last Admin: 11/21/24 09:20 Dose: 75 mls/hr Morphine Sulfate (Morphine Sulf Inj 10 Mg/Ml Vial) 2 mg IVP Q2H PRN PRN Reason: chest pain Ondansetron HCl (Ondansetron Inj 2 Mg/Ml Inj 2 Ml) 4 mg IV Q6H PRN; Protocol PRN Reason: NAUSEA OR VOMITING Stop: 12/21/24 08:06 Discontinued Medications Aspirin (Aspirin Ec 81 Mg Tabec) 81 mg PO X1 ONE Stop: 11/21/24 08:11 Last Admin: 11/21/24 09:19 Dose: 81 mg Clonidine (Clonidine Hcl 0.1 Mg Tablet) 0.1 mg PO X1 ONE Stop: 11/21/24 04:40 Last Admin: 11/21/24 05:06 Dose: 0.1 mg Labetalol HCl (Labetalol Inj 5 Mg/Ml Vial 20 Ml) 10 mg IVP X1 ONE Stop: 11/21/24 03:01 Last Admin: 11/21/24 03:06 Dose: 10 mg Labetalol HCl (Labetalol Inj 5 Mg/Ml Vial 20 Ml) 20 mg IVP X1 ONE Stop: 11/21/24 03:44 Last Admin: 11/21/24 03:54 Dose: 20 mg Metoprolol Succinate (Metoprolol Succinate Xl 25 Mg Tabcr) 100 mg PO X1 ONE Stop: 11/21/24 04:40 Last Admin: 11/21/24 05:06 Dose: 100 mg Nitroglycerin (Nitroglycerin Oint 2% 1 Inch Packet) 1 inch TOP X1 ONE Stop: 11/21/24 03:45 Last Admin: 11/21/24 03:54 Dose: 1 inch Assessment & Plan Plan Ms. Macdonald is 69 year old female with a past medical history significant of primary hypertension and diverticulosis comes to the ED complaining of chest pain rated a 8/10 upon onset. Pt describes the pain to be pressure like, acute onset while she was asleep around midnight. Pain is located midsternal radiating to the back with associated headache, tingling of the tongue and right arm all the way to right hand. Pt denies but nausea, diaphoresis, changes in vision, or syncope, not relieved with nitro x 1, improved with exertion. Patient reports having symptoms similar about 4 to 5 years ago, and cardio work up including stress test was all negative. Pt is admitted for further work up by consulted alpine guide. # Chest pain # Hypertensive urgency -midsternal chest pain, 8/10 radiating to the back, pain is not reproducible by palpation -Pt describes the pain to be pressure like, acute onset while she was asleep around midnight. -EKG was done and showed NSR, rate of 72, no ST changes or evidence of branch block. -CT Chest-negative for PE -Chest X-ray- no active disease -troponin negative x 1 Plan: -resume home Losartan 100mg, Clonidine 0.1mg and metoprolol 100mg -Consult Cardio, appreciate recommendations -Per cardio, Pt will undergo cardiac catherization today and will follow up with recommendations if aspirin and statin is needed -echo pending Health Maintenance Disposition: admitted to telemetry for observation- Pt will undergo cardiac cath DVT Prophylaxis: will consider post cardiac cath GI Prophylaxis: N/A Diet: NPO Lines: Peripheral lines Code status: Full Assessment and plan discussed with my senior resident Dr. Turk & attending physician Dr. Rox Gonsalves (PGY-1)- Internal medicine resident Senior resident attestation: Patient evaluated and examined at the bedside, plan of care discussed with rest of the team including my attending physician, except as noted. Ms. Ochoa is a 61-year-old female with a past medical history of hypertension, diverticulosis, who came in with substernal chest pain, pressure-like character, took nitroglycerin at home with no particular relief, except causing a headache, initial troponin was negative, Of note patient had negative outpatient cardiac workup, including stress echo which was done [address] Luigi Calderon's office, but patient did not follow-up with cardiology later. Noted to have hypertensive urgency, will continue with antihypertensive medications. cardiology was consulted, Dr. Reed followed the patient, plans to do cardiac catheterization. Appreciate further cardiac recommendations. #Chest pain #Hypertensive urgency?on losartan, clonidine 0.1 mg and metoprolol. Burke PGY2
--- NOTE | 2024-11-21 12:07 | PC.NURSE ---
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
--- NOTE | 2024-11-21 14:00 | PD.CARDCATH ---
Cardiac Cath Procedure Procedure Name Date of procedure: 11/21/2024 TRANSFORMER MAKER: Ben Reed MD PROCEDURE PERFORMED: 1. Left heart cardiac catheterization including right, left coronary angiograms and left ventriculogram 2. Ultrasound-guided access of the right radial artery 3. Conscious sedation for 30 minutes. Procedure Narrative HISTORY AND INDICATIONS: A 69-year-old female with a past medical history of essential hypertension for more than 20 years, obesity, diverticulosis, family history of heart disease with father of heart rate in 60s and mother in her 80s, diabetes and hypertension presented to the emergency department for further evaluation of chest pain and chest pressure that woke her up from sleep around midnight 12:30 AM today. EKG showed minimal ST depressions with T wave inversions in the inferior leads and patient presented with typical chest pain symptoms along with risk factors including hypertension obesity, family history of heart disease and was recommended left heart cardiac catheterization. Patient was explained the risk benefits and alternatives of performing a left heart cardiac catheterization including the risk of bleeding, heart attack, stroke and in detail and the agreeable for the procedure. Consent signed, placed in the chart and H&P updated. DESCRIPTION OF PROCEDURE: The patient was brought to the cardiac catheterization lab and all asceptic precautions were followed. Patient was given 1 Mg of Versed and 50 mcg of fentanyl for moderate conscious sedation. 2 mL of lidocaine was given in the right wrist. The right radial artery was accessed via the ultrasound guidance as well as micropuncture technique. A 6 Danish glide sheath was introduced. We then used a 5 Danish TIG 4 catheter to perform the left and right coronary angiograms as well as a left ventriculogram which showed the following findings. 1. Left ventricular ejection fraction was normal at 60 to 65% without any regional wall motion abnormalities. LVEDP was normal at 12 mmHg. There was no significant transvalvular aortic gradient. 2. Right dominant circulation 3. Left main artery is a large-caliber vessel without any significant stenosis. 4. LAD is a large sized artery with mild 20 to 20% % stenosis in the mid LAD a medium size diagonal and does not show any significant disease. 5. LCx is a large sized artery with mild 20 to 30% % stenosis in the proximal portion, medium OM1 and small OM2, OM3 without any significant disease. 6. RCA is a large artery with mild 20 to 30% stenosis in the proximal portion, medium RPDA and RPL without any significant disease. A radial band was used to achieve the hemostasis of the right radial artery access. Patient will be monitored in the cardiac Enrolled Nurse for the next 2 to 3 hours and will be transferred to the telemetry floor if hemodynamically stable. Patient recommended to follow-up with me in the office within 7 days. Complications: None Specimens: None Blood loss: Estimated 5-10 ml Summary/findings: 1. Unstable angina: LHC showed mild CAD with 20 to 30% stenosis involving proximal RCA, proximal LCx and 2020% stenosis in the mid LAD but rest of the arteries and the branches without any significant disease. 2. LVEF was normal at 60-65% and normal LVEDP of 12 mmHg. No transvalvular aortic gradient. Recommendations: 1. Recommended aggressive medical treatment with aspirin, statin as well as beta-tiana. Check TSH A1c and lipid profile for further cardiac risk stratification. 2. Recommend aggressive risk factor modification with better blood pressure control including Coreg, losartan and if needed a calcium channel tiana. 3. Recommended no lifting more than 5 pounds for 7 days and follow up in my office in 7 days. Ben Reed MD Interventional Cardiology.
[2024-11-21] MEDS: ACETAMINOPHEN 325 MG TABLET 650 MG PO (14:21)
[2024-11-21] MEDS: Aspirin 325 MG TABLET PO (14:31)
[2024-11-21] MEDS: LOSARTAN POTASSIUM 25 MG TABLET 100 MG PO (16:42)
[2024-11-21] MEDS: HEPARIN SOD INJ 5000 UNIT/ML VIAL SC ×2 (16:43→21:15)
[2024-11-22] MEDS: RINGERS LACTATED 1000 ML 1,000 ML 75 ML IV (02:26)
[2024-11-22 03:52] VITALS: BP 129/78; PULSE 70; RESP 23; TEMP 36.1; O2SAT 97
[2024-11-22] MEDS: HEPARIN SOD INJ 5000 UNIT/ML VIAL SC (05:10)
[2024-11-22 06:17] LABS: Basophils # (Auto) 0.1 Thou/mm3 (0.0-0.2); Basophils % (Auto) 1 % (0-2.5); Eosinophils # (Auto) 0.1 Thou/mm3 (0.0-0.5); Eosinophils % (Auto) 1 % (0-10); Hematocrit 39.3 % (36.0-46.0); Hemoglobin 12.9 g/dL (12.0-16.0); Immature Granulocytes % (Auto) 0 % (0-0); Immature Granulocytes Auto 0.03 Thou/mm3 (0.00-0.00); Lymphocytes # (Auto) 2.6 Thou/mm3 (1.0-4.8); Lymphocytes % (Auto) 27 % (10-50); Mean Corpuscular HGB Conc 32.8 g/dl (31.0-37.0); Mean Corpuscular Hemoglobin 25.4 pg (25.0-35.0); Mean Corpuscular Volume 77 fL (80-100); Monocytes # (Auto) 0.7 Thou/mm3 (0.0-0.8); Monocytes % (Auto) 7 % (0-12); Neutrophils # (Auto) 6.2 Thou/mm3 (1.8-7.7); Neutrophils % (Auto) 64 % (37-80); Nucleated Red Blood Cell % 0 /100 WBC (0); Platelet Count 220 Thou/mm3 (140-440); Red Blood Count 5.08 Miln/mm3 (4.00-5.20); White Blood Count 9.6 Thou/mm3 (3.6-11.0)
[2024-11-22 07:03] LABS: Alanine Aminotransferase < 7 U/L (10-49); Albumin, Serum 3.8 gm/dL (3.4-4.8); Albumin/Globulin Ratio 1.4 (1.2-2.2); Alkaline Phosphatase 119 U/L (46-116); Anion Gap 7 (7-16); Aspartate Amino Transferase 12 U/L (0-34); BUN/Creatinine Ratio 19 Ratio (12-20); Bilirubin,Total 1.2 mg/dL (0.3-1.2); Blood Urea Nitrogen 13 mg/dL (9-23); Calcium 9.2 mg/dL (8.3-10.6); Calcium (Corrected) 9.4 mg/dL (8.5-10.1); Carbon Dioxide 26.2 mMol/L (20.0-31.0); Chloride 107 mMol/L (98-107); Creatinine (Component) 0.7 mg/dL (0.6-1.3); Estimated Creatinine Clearance 76.5 mL/min (>60); Globulin 2.8 gm/dL (2.3-3.5); Glucose 94 mg/dL (74-106); Osmolality,Calculated 279 (275-295); Phosphorous 2.9 mg/dL (2.4-5.1); Potassium 4.4 mMol/L (3.4-5.1); Sodium 140 mMol/L (136-145); Thyroid Stimulating Hormone 1.63 uIU/mL (0.55-4.78); Total Protein 6.6 gm/dL (5.7-8.2); eGFR > 60 See Note
--- NOTE | 2024-11-22 07:41 | ESPR_ITS ---
<Statement entered by Ben Reed MD - 11/22/24 22:59> I have personally seen and examined the patient separately on the above date of service and discussed the plan of care with the resident. I reviewed the resident Dr. Solano consultation note and agree with the resident findings and plan in the note above and have also edited the documentation to reflect my findings and plan. A 69-year-old female with a past medical history of essential hypertension for more than 20 years, obesity, diverticulosis, family history of heart disease with father of heart rate in 60s and mother in her 80s, diabetes and hypertension presented to the emergency department for further evaluation of chest pain and chest pressure that woke her up from sleep around midnight 12:30 AM today. Patient woke up from sleep with severe 8/10 chest pressure like sensation which was mostly substernal radiating to the back and associated with tingling sensation but no radiation to the arms along with a headache. Patient stood up and tried to walk around which improved a little and she used her 's sublingual nitroglycerin which did not help and she immediately came to the emergency department in which his pressure improved after the nitroglycerin patch was placed. Patient did have previous episode of chest pain and was evaluated with stress test at [facility] but was apparently negative. Patient recently has been having uncontrolled blood pressure and needs to see her primary doctor who recently started on clonidine. Patient has been on metoprolol XL as well as losartan for many years. In the emergency department patient blood pressure was elevated at 219/130 mmHg and patient was given IV labetalol along with nitroglycerin patch as well as her home medications of metoprolol succinate as well as her clonidine. Cardiology was consulted for further evaluation of the chest pain as well as elevated blood pressure. Retired now and used to work in the food industry and denied any kind of's smoking alcohol or drug history. Labs showed normal CBC, magnesium of 2.1, normal BMP with normal renal function. EKG showed normal sinus rhythm with minimal ST depressions in the inferior leads II, III, aVF along with T wave inversions in 3 and aVF and poor R wave progression in the precordial leads. Troponins [address] chest was done which was negative for PE as well as any aortic dissection but showed mild dilation of ascending aorta at 3.2 cm. Unstable angina-rule out acute coronary syndrome. Patient presented with typical chest pain features as noted and woke up in the middle of the night from sleep with severe chest pressure along with minimal ST depressions in the inferior leads along with some T wave inversions. Patient has risk factors including hypertension obesity as well as family history of heart disease and has been having frequent chest pain episodes previously and had workup done few years ago. Will need to rule out acute coronary syndrome and LHC perfomed on 11/21/2023 showed only mild CAD 1. Unstable angina: LHC showed mild CAD with 20 to 30% stenosis involving proximal RCA, proximal LCx and 2020% stenosis in the mid LAD but rest of the arteries and the branches without any significant disease. 2. LVEF was normal at 60-65% and normal LVEDP of 12 mmHg. No transvalvular aortic gradient. Recommendations: 1. Recommended aggressive medical treatment with aspirin, statin as well as beta-tiana. Check TSH A1c and lipid profile for further cardiac risk stratification. 2. Recommend aggressive risk factor modification with better blood pressure control including Coreg, losartan and if needed a calcium channel tiana. 3. Recommended no lifting more than 5 pounds for 7 days and follow up in my office in 7 days. Echocardiogram showed normal LV and RV function with and Ef was 60-65% TSH A1c as well as lipid profile for further cardiac risk stratification. Hypertensive urgency: Patient presented with a blood pressure of 209/130 mmHg. Patient also complained of some headache. CT chest ruled out any kind of aortic dissection and pulmonary embolism. Patient does have evidence of LVH on the EKG indicating chronic hypertension which she had more than for 20 years. Patient apparently was previously well-controlled on metoprolol XL as well as losartan. Recently apparently patient was started on clonidine by the PCP couple of days ago. Recommend to continue losartan 100 mg once daily and change metoprolol XL to Coreg 12.5 mg twice daily and hold the clonidine for now and continue to uptitrate Coreg up to 25 mg twice daily and the blood pressure still elevated and patient she needs to be started on calcium channel blockers before initiating any kind of clonidine. Management of rest of the medical conditions as per primary team and other consultants. Thank you for the consult and allowing me to participate in the care of the patient. Cardiology will continue to follow. Ben Reed M.D. Interventional Cardiology Documentation for date of: 11/22/24 Subjective Subjective Interval history: Patient examined at bedside today. Overnight patient maintained sinus rhythm rate controlled 70s and 80s. Patient reports no complaints. Says she slept well. Not experiencing any chest pain or palpitations. Is wondering when she is going to go home. Was asking about her cath results and was told that she has some mild disease in some of her arteries and will need to be on aspirin and statin. No other complaints at this time. Exam Vital Signs Temp Pulse Resp BP Pulse Ox O2 Del Method O2 Flow Rate 97.0 F 70 23 H 129/78 97 Room Air 2 11/22/24 03:52 11/22/24 03:52 11/22/24 03:52 11/22/24 03:52 11/22/24 03:52 11/22/24 03:52 11/21/24 15:00 Narrative Exam General: AAOx3, NAD, obese pleasant female, wears glasses HEENT: Dry mucous membranes, conjunctiva clear, EOMI, PERRLA, Cardiovascular: S1, S2, radial pulses +2 bilat, RRR Pulmonary: CTAB bilat no cough, no wheezing GI: No tenderness to light or deep palpitation, no guarding, rigidity, rebound tenderness or distension Extremities: No presence of trace or pitting edema in lower extremities bilaterally, dorsalis pedis pulses +2 bilaterally Neuro: AAOx3, no focal motor or sensory deficits in the UE or LE bilat Psych: Good judgement, thought and behavior. Cooperative Objective Labs 11/22/24 04:35 11/22/24 04:35 Labs: Laboratory Results - last 24 hr 11/21/24 11/22/24 09:32 04:35 WBC 9.6 RBC 5.08 Hgb 12.9 Hct 39.3 MCV 77 L MCH 25.4 MCHC 32.8 RDW Std Deviation 41.0 Plt Count 220 D Neut % (Auto) 64 Lymph % (Auto) 27 [place] % (Auto) 7 Eos % (Auto) 1 Baso % (Auto) 1 Neut # (Auto) 6.2 Lymph # (Auto) 2.6 [place] # (Auto) 0.7 Eos # (Auto) 0.1 Baso # (Auto) 0.1 Immature Gran # (Auto) 0.03 H Absolute Nucleated RBC 0.00 Immature Gran % 0 Nucleated RBC % 0 Sodium 140 Potassium 4.4 Chloride 107 Carbon Dioxide 26.2 Anion Gap 7 BUN 13 Creatinine 0.7 Estim Creat Clear Calc 76.5 eGFR > 60 BUN/Creatinine Ratio 19 Glucose 94 Calculated Osmolality 279 Calcium 9.2 Corrected Calcium 9.4 Phosphorus 2.9 Magnesium 2.0 Total Bilirubin 1.2 D AST 12 ALT < 7 L Alkaline Phosphatase 119 H Troponin I < 0.020 Total Protein 6.6 Albumin 3.8 D Globulin 2.8 Albumin/Globulin Ratio 1.4 Triglycerides 158 H Cholesterol 179 LDL Cholesterol, Calc 98 HDL Cholesterol 49 Cholesterol/HDL Ratio 3.7 TSH 1.63 Quality Measures Quality Measures VTE prophylaxis Advance care planning discussed with:: patient Assessment & Plan Assessment Current Active Medications: Generic Name Dose Route Start Last Admin Trade Name Freq PRN Reason Stop Dose Admin Acetaminophen 650 mg 11/21/24 08:07 11/21/24 14:21 Acetaminophen 325 Mg Tablet PO 12/21/24 08:06 650 mg Q6H PRN Administration Fever >101.5 Acetaminophen 650 mg 11/21/24 08:07 Acetaminophen 325 Mg Tablet PO 12/21/24 08:06 Q6H PRN PAIN SCALE 1-3 (mild Hydrocodone Bitart/Acetaminophen 1 tab 11/21/24 08:07 Hydrocodone/Apap 10/325 Tab PO 11/26/24 08:06 Q4H PRN PAIN SCALE 4-6 (Moderate Clonidine 0.1 mg 11/21/24 13:45 11/21/24 20:08 Clonidine Hcl 0.1 Mg Tablet PO 12/21/24 13:44 0.1 mg BID SHAAN Administration Heparin Sodium (Porcine) 5,000 unit 11/21/24 14:00 11/22/24 05:10 Heparin Sod Inj 5000 Unit/Ml Vial SC 12/05/24 13:59 5,000 unit Q8HR SHAAN Administration Lactated Ringer's 1,000 mls @ 75 mls/hr 11/21/24 08:15 11/22/24 02:26 Lactated Ringers IV 11/22/24 08:14 75 mls/hr .[id number] SHAAN Administration Losartan Potassium 100 mg 11/21/24 13:45 11/21/24 16:42 Losartan Potassium 25 Mg Tablet PO 12/21/24 13:44 100 mg QDAY SHAAN Administration Metoprolol Succinate 100 mg 11/21/24 13:45 11/21/24 14:38 Metoprolol Succinate Xl 25 Mg Tabcr PO 12/21/24 13:44 100 mg DAILY SHAAN Administration Morphine Sulfate 2 mg 11/21/24 04:50 Morphine Sulf Inj 10 Mg/Ml Vial IVP Q2H PRN chest pain Ondansetron HCl 4 mg 11/21/24 08:07 Ondansetron Inj 2 Mg/Ml Inj 2 Ml IV 12/21/24 08:06 Q6H PRN NAUSEA OR VOMITING Protocol Plan Assessment: Renae is a 69-year-old female with a past medical history of hypertension and diverticulosis who is currently admitted for hypertensive emergency. #Hypertensive emergency, resolved #Unstable angina #Hx of hypertension #Hx of CAD Echo shows normal EF 60 to 65% without regional wall motion abnormalities, left ventricular end-diastolic pressure was normal at 12 mmHg Left heart cath shows left main artery has no stenosis, LAD shows mild 20 to 30% stenosis in the mid LAD, medium size diagonal does not show significant disease Left circumflex shows mild 20 to 30% stenosis in proximal portion, medium OM1 2 and 3 showed no significant disease Right coronary artery shows mild stenosis 20 to 30% the proximal portion Patient recommended to continue with aspirin, statin and beta-tiana TSH wnl A1c 5.3 Lipid panel Total cholesterol ~180, LDL ~97 Patient will need to continue aspirin, statin and beta-tiana upon DC No need for dual antiplatelet therapy as patient did not have stent placed in Plan: ?Aspirin and Lipitor 40 daily ?Recommend to start Coreg 12.5 twice daily and titrate as needed along with losartan 100 mg daily ?Patient will need to follow-up with Dr. Reed upon DC Patient seen and care discussed with my attending physician, Dr. Brianna Orourke, PGY-1
[2024-11-22 08:00] VITALS: BP 145/78; PULSE 69; RESP 22; TEMP 35.9; O2SAT 98
[2024-11-22 08:38] VITALS: BP 145/78; PULSE 70
[2024-11-22] MEDS: cloNIDine HCL 0.1 MG TABLET PO (08:38)
[2024-11-22] MEDS: LOSARTAN POTASSIUM 25 MG TABLET 100 MG PO (08:38)
[2024-11-22] MEDS: METOPROLOL SUCCINATE XL 25 MG TABCR 100 MG PO (08:38)
[2024-11-22 09:14] LABS: Prothrombin Time 11.2 Seconds (9.0-12.2)
--- NOTE | 2024-11-22 10:38 | PD.RESDS ---
Planned Discharge Date 11/22/24 DS: Providers Provider Date of admission: 11/21/24 08:07 Primary care physician: Lorne Ortez MD Admitting Provider: Akin Gramajo MD Attending Provider on Admission: Timur Del Cid MD Consults: 11/21/24 03:57 Consult to Cardiology Routine Comment: Consulting Provider: Ben Reed Attending Provider on DC: Maribel Gonsalves MD Discharging Provider: Maribel Gonsalves MD DS: Diagnosis Problem List Completed Was Problem List Reviewed/Reconciled?: Yes Hospital Course Hospital Course Hospital course: Ms. Macdonald is 69 year old female with a past medical history significant of primary hypertension and diverticulosis presented to [facility] ED on 11/21/2024 complaining of midsternal pressure like chest pain rated 8/10 radiating to the back with associated headache, tingling of the tongue and right arm all the way to right hand. Pt denied but nausea, diaphoresis, changes in vision, or syncope, not relieved with nitro x 1, improved with exertion. Initial vitals include blood pressure 209/113, WBC 11.8, MCV 77, MCH 24.9 and all other labs including urinalysis unremarkable troponin negative x 2. Patient reports having symptoms similar about 4 to 5 years ago, and cardio work up including stress test was all negative, at that time pt was sent home with prescription of Baclofan. Senior Administrative Associate was Consulted and patient underwent cardiac catherization on 11/21/24. Patient is hemodynamically and symptomatically stable to be discharge home. Pt. is advised if her symptoms return or worsen to promptly return to the ED. Images EKG: showed normal sinus rhythm, rate of 72, no ST changes or evidence of branch block. CT Chest w contrast: showed no thoracic aortic aneurysmal dilatation or dissection, negative for pulmonary artery emboli, no pneumonia, pulmonary edema or pleural disease, Ascending thoracic aorta was 3.2 cm Chest X-ray: No active disease Echo: LVEF was normal at 60-65% and normal LVEDP of 12 mmHg. No transvalvular aortic gradient. Left heart cardiac catheterization: [facility] showed mild CAD with 20 to 30% stenosis involving proximal RCA, proximal LCx and 20% stenosis in the mid LAD but rest of the arteries and the branches without any significant disease. Discharge Recommendations Please call to Schedule a follow up appointment with your Senior Administrative Associate, to be seen in his office within one week upon discharge Please call to schedule a follow up appointment with your primary care doctor 1-2 weeks after discharge so he/she can make further recommendations about your overall health condition. Your medication metoprolol has been changed to carvedilol, Take carvedilol 12.5mg twice daily. In addition to losartan and Nifedipine, for adequate blood pressure control. Cardiology recommends no heavy lifting greater than 5 pounds for next 7 days. In case of worsening symptoms return to the emergency room. Hospitalization Diagnosis #Chest pain #Unstable angina #Hypertensive Urgency #History of Primary Hypertension Assessment and plan discussed with my attending physician Dr. Nehemias Gonsalves (PGY-1)- Internal medicine resident Time Spent with Patient Time attestation: Total time spent providing and/or coordinating discharge services: 30 min Exam Vital Signs Temp Pulse Resp BP Pulse Ox O2 Del Method O2 Flow Rate 96.6 F L 70 22 H 145/78 H 98 Room Air 2 11/22/24 08:00 11/22/24 08:38 11/22/24 08:00 11/22/24 08:38 11/22/24 08:00 11/22/24 08:00 11/21/24 15:00 Discharge Plan Plan Patient Disposition: HOME (Self Care) Care Plan Goals: Recommend following up with boss miner Dr. Reed within 7 days of discharge from hospital. Your medication metoprolol has been changed to carvedilol, Take carvedilol 12.5 mg twice daily. In addition to losartan and Nifedipine, for adequate blood pressure control. Cardiology recommends no heavy lifting greater than 5 pounds for next 7 days. In case of worsening symptoms. Turn to the emergency room. Prescriptions/Referrals Prescriptions/Med Rec: New aspirin 81 mg tablet,delayed release (DR/EC) 81 mg PO QDAY Qty: 30 0RF atorvastatin 40 mg tablet 40 mg PO QDAY Qty: 30 0RF nifedipine 30 mg tablet extended release 30 mg PO QDAY Qty: 30 0RF carvedilol 12.5 mg tablet 12.5 mg PO BID 30 Days Qty: 60 0RF Rx Instructions: must administer with a meal/food Continued losartan 100 mg tablet 100 mg PO QDAY Patient Comments: take 1 tablet by mouth once daily for blood pressure Discontinued clonidine HCl 0.1 mg Tablet Extended Release 12 Hr 0.1 mg PO BID metoprolol succinate 50 mg tablet extended release 24 hr 100 mg PO DAILY Referrals: Lorne Ortez MD [Primary Care Provider] - Patient/Caregiver Discharge Instructions Other Discharge Activity Instructions:: Follow up with Dr. Coleman within one week, call [phone] for an appoinment. [address] Remove [place] Cob[place] dressing today 11/22/24 at 4:00 PM Remove [place] Tedagerm dressing tomorrow 11/23/24 4:00 PM Keep your appoinement for Dr. Ortez for tomorrow 11/23/24. Your medication metoprolol has been changed to carvedilol, Take carvedilol 6.25 mg twice daily. In addition to losartan and Nifedipine, for adequate blood pressure control. Cardiology recommends no heavy lifting greater than 5 pounds for next 7 days. In case of worsening symptoms. Turn to the emergency room. Education Materials: Cardiac Catheterization Dc, Preventing Surgical Site Infections, Procedural Sedation, Cardiac Cath Transradial Print Language: Polish Activity Restrictions/Additional Instructions: Please call to Schedule a follow up appointment with your Senior Administrative Associate, to be seen in his office within one week upon discharge Please call to schedule a follow up appointment with your primary care doctor 1-2 weeks after discharge so he/she can make further recommendations about your overall health condition. DO NOT drive or operate any motor vehicle, heavy equipment, or machinery in the next 24 hours. DO NOT perform any activity that requires you to be fully alert in the next 24 hours. DO NOT sign any documentation in the next 24 hours that requires a full understanding of what you are signing for. Do not perform any strenuous physical activity in the next 5 days. Do not bend or twist your wrist for the next 3 days. Do no lift anything that weights equal or over 5 pounds with your right Arm/Hand within the next 3 days. Perform light activity only with your right Hand/Arm for the next 3 days. Do not strain your bowel. If you experience constipation, drink plenty of fluids, especially water, if not contraindicated by your doctor. In addition, add foods rich in fiber. Should you experience constipation, talk to your doctor about other options that might help you alleviate it. Keep your blood pressure under control. If you take blood pressure medication, continue to take it as prescribed, if not contraindicated by your doctor, doing so; helps to prevent post-complications such as bleeding. Take your new/previous medication as directed by the doctor. If there is no changes, continue to take medication at your usual time. After 3 days, start increasing the level of physical activity with your Hand/Arm gradually in the following 5 days. Look out for signs of infection such as tenderness, redness, or drainage to your right wrist. If any, report them to your primary care doctor immediately. You will go home with your right wrist covered by two different dressings, a clear dressing and a Coban wrap. The [place] wrap (Color Dressing on Top) must be removed in 24 hours after it was placed. The clear dressing (Dressing that is attached to your skin) Must be removed in 48 hours after it was placed. If you decide to shower or to take a bath, NOT RECOMMENDED IN THE FIRST 24 HOURS AFTER THE PROCEDURE; please keep dressing clean and dry by covering it. Or, if you prefer, take a sponge bath instead. After removing your dressing, you can gently clean your surgical site with soap and water and pad dry it. DO NOT rub site to prevent complication such as bleeding. DO NOT apply any lotions, creams, or powders on the surgical site until your skin completely heals (5 days or more). Should you experience any type of complications such as pain, change in color, change in temperature, a bruise that increases in size and color, a lump (Hard or soft) that develops and increases in size, numbness, or loss of sensation in your Right arm/Wrist, Chest pain, or shortness of breath; PLEASE GO TO THE NEAREST EMERGENCY ROOM IMMEDIATELY. Should you have any other questions or concerns on regards today?s procedure; feel free to contact us to [facility] . Please call to schedule a follow up appointment with your primary care doctor 1-2 weeks after discharge so he/she can make further recommendations about your overall health condition. It is important to follow a heart healthy diet. Avoid saturated fat foods and food and drinks with added sugar. Eat a well-balanced diet with plenty of fresh fruits, vegetables and whole grains if not contraindicated by your primary care provider. Choose water to hydrate yourself over any other type of drinks. Talk to your primary doctor for further advice for a diet that fits your nutritional body requirements and for an adequate exercise program to keep and improve your overall health condition. ALWAYS FOLLOW/CONSIDER YOUR PRIMARY CARE DOCTOR'S MEDICAL ADVICE BEFORE MAKING ANY CHANGES TO YOUR DIET OR LEVEL OF ACTIVITY. Should you have any other questions or concerns on regards today?s procedure; feel free to contact us to [facility] . Stand Alone Forms: Gloria Award Info., Patient Portal Info Letter, Work/Release Restrictions Discharge Order Discharge Orders: Discharge (Routine); Ordered 11/22/24 Ordered By: Juan Manuel Turk Quality Discharge Quality Measures none MD Attestestation MD Attestation I reviewed labs, imaging, EKG, home medications and prior available records. Face to face evaluation was performed by me. I have personally examined the patient and discussed assessment and plan with the IM team. I reviewed the resident note and agree with the plan with exceptions as below. Unstable angina: Status post cardiac catheterization that showed mild CAD. Continue aspirin and atorvastatin. Outpatient follow-up with cardiology. Echocardiogram showed EF of 60 to 65% during the cath. Continue beta-tiana. Uncontrolled hypertension: Will use calcium channel tiana instead of clonidine. Continue carvedilol and losartan. Monitor BP at home. Time spent is 40 minutes. More than 50% of the time was spent on patient education and coordination of care.
[2024-11-22 12:00] VITALS: BP 142/86; PULSE 60; PULSE 65; RESP 20; TEMP 36.3; O2SAT 96
[2024-11-22 12:54] VITALS: BP 141/82; PULSE 67; RESP 18; TEMP 36.4; O2SAT 97
== END 2024-11-22 12:54 | disposition home or self-care (01) ==
LOC: SERX 07:51 → SERHOLD 08:16 → S2NX 16:21
PROVIDERS: Emergency Medicine; Internal Medicine Cardiovascular Disease; Student in an Organized Health Care Education/Training Program; Admitting Provider Internal Medicine; Emergency Provider Emergency Medicine; PCP Family Medicine; Visit Provider Student in an Organized Health Care Education/Training Program
PROC: (CPT 93458; principal; 2024-11-21 13:00)
DX: I25.118 Atherosclerotic heart disease of native coronary artery with other forms of angina pectoris (principal); E11.9 Type 2 diabetes mellitus without complications; I25.10 Atherosclerotic heart disease of native coronary artery without angina pectoris; I16.1 Hypertensive emergency; I10 Essential (primary) hypertension; E66.9 Obesity, unspecified; Z68.35 Body mass index [BMI] 35.0-35.9, adult; Z82.49 Family history of ischemic heart disease and other diseases of the circulatory system; Z83.3 Family history of diabetes mellitus; Z90.710 Acquired absence of both cervix and uterus; I35.1 Nonrheumatic aortic (valve) insufficiency
CPT/HCPCS: 93458; 93314; 36415; 71045; 71260; 80053; 80061; 80307; 81001; 83615; 83735; 83880; 84100; 84443; 84484; 85025; 85610; 85730; 93005; 93306; 96360; 96361; 96372; 99152; 99285; A4649; C1769; C1887; C1894; G0378; J0171; J0461; J1643; J2250; J2310; J2371; J3010; J3490; J7120; Q9967; A9270; J1920; J2305

== ENCOUNTER → 2024-12-01 | Outpatient (CLI) | payer MEDICARE, BC, SELFPAY ==
--- NOTE | 2024-12-01 14:00 | XR_ITS ---
Examination: Breast ultrasound, unilateral, right complete Date and time of exam: December 01, 2024 1415 hrs. Indications: Mammogram November 06, 2024 10 mm nodule retroareolar region right breast Technique: Real-time burnette scale ultrasonographic imaging performed right breast including all 4 quadrants as well as nipple retroareolar and axillary region. Findings: Retroareolar cyst 7 x 8 mm No solid nodules Impression: BI-RADS Category 2: Benign findings
--- NOTE | 2024-12-01 14:30 | XR_ITS ---
Examination: Diagnostic digital mammography, unilateral, right Computer aided detection 3-D breast Tomosynthesis, unilateral Date and time of exam: December 01, 2024 1424 hrs. Indications: Mammogram November 06, 2024 10 mm nodule retroareolar region right breast Technique: Nonmagnified MLO, CC views of the right breast have been obtained, reconstructed from 3-D Tomosynthesis images. R2 computer aided detection program utilized for evaluation of suspicious masses and/or abnormal calcifications. 3-D Tomosynthesis images obtained. Findings: Scattered areas of fibroglandular density No suspicious nodule depicted Right breast sonogram today indicates benign retroareolar cyst 8 mm no solid nodules Impression: BI-RADS category 2: Benign findings Return to 30 follow-up mammography
== END | disposition home or self-care (01) ==
PROVIDERS: PCP Family Medicine; Referring Provider Family Medicine; Visit Provider Family Medicine
DX: R92.321 Mammographic fibroglandular density, right breast (principal); N60.01 Solitary cyst of right breast
CPT/HCPCS: 76641; 77061; 77065; G0279

== ENCOUNTER → 2025-01-26 | Outpatient (CLI) | payer MEDICARE, BC, SELFPAY ==
[2025-01-26 08:49] LABS: Alanine Aminotransferase 10 U/L (10-49); Albumin, Serum 4.2 gm/dL (3.4-4.8); Alkaline Phosphatase 143 U/L (46-116); Bilirubin,Direct 0.3 mg/dL (0.0-0.3); Cardiac Risk Estimate 2.7 RATIO (3.7-5.6); Cholesterol 149 mg/dL (132-200); HDL Cholesterol 55 mg/dL (40-60); LDL Cholesterol,Calculated 69 mg/dL (0-130); Total Protein 6.9 gm/dL (5.7-8.2); Triglycerides 124 mg/dL (30-150)
[2025-01-26 09:03] LABS: Aspartate Amino Transferase 12 U/L (0-34)
== END | disposition home or self-care (01) ==
PROVIDERS: PCP Family Medicine; Referring Provider Family Medicine; Visit Provider Family Medicine
DX: E78.00 Pure hypercholesterolemia, unspecified (principal)
CPT/HCPCS: 36415; 80061; 80076

== ENCOUNTER → 2025-08-02 | Outpatient (CLI) | payer MEDICARE, BC, SELFPAY ==
[2025-08-02 08:25] LABS: Misc Send Out* See Sep Rpt
[2025-08-02 09:34] LABS: Basophils # (Auto) 0.1 Thou/mm3 (0.0-0.2); Basophils % (Auto) 1 % (0-2.5); Eosinophils # (Auto) 0.2 Thou/mm3 (0.0-0.5); Eosinophils % (Auto) 3 % (0-10); Hematocrit 41.9 % (36.0-46.0); Hemoglobin 13.1 g/dL (12.0-16.0); Immature Granulocytes Auto 0.02 Thou/mm3 (0.00-0.00); Lymphocytes # (Auto) 2.4 Thou/mm3 (1.0-4.8); Lymphocytes % (Auto) 28 % (10-50); Mean Corpuscular HGB Conc 31.3 g/dl (31.0-37.0); Mean Corpuscular Hemoglobin 25.0 pg (25.0-35.0); Mean Corpuscular Volume 80 fL (80-100); Monocytes # (Auto) 0.5 Thou/mm3 (0.0-0.8); Monocytes % (Auto) 6 % (0-12); Neutrophils # (Auto) 5.5 Thou/mm3 (1.8-7.7); Neutrophils % (Auto) 63 % (37-80); Nucleated Red Blood Cell # 0.00 Thou/mm3 (0.00-0.00); Nucleated Red Blood Cell % 0 /100 WBC (0); Platelet Count 300 Thou/mm3 (140-440); RDW Standard Deviation 43.6 fL (36.4-46.3); Red Blood Count 5.23 Miln/mm3 (4.00-5.20); White Blood Count 8.7 Thou/mm3 (3.6-11.0)
[2025-08-02 10:08] LABS: Alanine Aminotransferase 10 U/L (10-49); Albumin, Serum 4.3 gm/dL (3.4-4.8); Albumin/Globulin Ratio 1.6 (1.2-2.2); Alkaline Phosphatase 137 U/L (46-116); Anion Gap 8 (7-16); Aspartate Amino Transferase 18 U/L (0-34); BUN/Creatinine Ratio 16 Ratio (12-20); Bilirubin,Total 1.5 mg/dL (0.3-1.2); Blood Urea Nitrogen 13 mg/dL (9-23); Calcium 9.7 mg/dL (8.3-10.6); Calcium (Corrected) 9.7 mg/dL (8.5-10.1); Carbon Dioxide 27.0 mMol/L (20.0-31.0); Cardiac Risk Estimate 3.0 RATIO (3.7-5.6); Chloride 107 mMol/L (98-107); Cholesterol 160 mg/dL (132-200); Creatinine (Component) 0.8 mg/dL (0.6-1.3); Globulin 2.7 gm/dL (2.3-3.5); Glucose 101 mg/dL (74-106); HDL Cholesterol 53 mg/dL (40-60); LDL Cholesterol,Calculated 76 mg/dL (0-130); Osmolality,Calculated 283 (275-295); Potassium 4.7 mMol/L (3.4-5.1); Sodium 142 mMol/L (136-145); Thyroid Stimulating Hormone 0.77 uIU/mL (0.55-4.78); Total Protein 7.0 gm/dL (5.7-8.2); Triglycerides 156 mg/dL (30-150); eGFR > 60 See Note
== END | disposition home or self-care (01) ==
LOC: COPL 07:52
PROVIDERS: PCP Family Medicine; Referring Provider Internal Medicine; Visit Provider Internal Medicine
DX: I10 Essential (primary) hypertension (principal); E78.5 Hyperlipidemia, unspecified; I25.10 Atherosclerotic heart disease of native coronary artery without angina pectoris
CPT/HCPCS: 36415; 80053; 80061; 84443; 85025

== ENCOUNTER 2025-09-09 13:36 | Emergency (ER) | payer MEDICARE, BC, SELFPAY ==
[2025-09-09] VITALS (10 sets, daily range): BP systolic 157–210; BP diastolic 81–114; PULSE 70–83; RESP 14–23; TEMP 36.6–37.1; O2SAT 94–100
--- NOTE | 2025-09-09 13:55 | XR_ITS ---
EXAMINATION: AP chest single view TECHNIQUE: AP portable sitting chest single view Date and time: September 09, 2025, 1405 hours INDICATIONS: Shortness of breath today. FINDINGS: Normal heart size No pneumonia or pulmonary edema The osseous structures are intact IMPRESSION: No active disease
--- NOTE | 2025-09-09 13:55 | EKG_ITS ---
[facility] Test Date: 2025-09-09 Pat Name: KULWANT AMEZCUA Department: Room: - Gender: Female [employer] Bi Consultant: : [id number] Requested By: Marcella Patrick Order Number: [id number] Reading MD: Marcella Patrick Measurements Intervals Bradley Rate: 74 P: 50 OK: 182 QRS: -31 QRSD: 89 T: 38 QT: 370 QTc: 413 Interpretive Statements SINUS RHYTHM LEFT AXIS DEVIATION [QRS AXIS < -30] LOW QRS VOLTAGE IN PRECORDIAL LEADS [QRS DEFLECTION < 1.0 mV IN CHEST LEADS] POSSIBLE ANTERIOR MYOCARDIAL INFARCTION , PROBABLY OLD [30 ms Q WAVE IN V3/V4, OR R < 0.2 mV IN V4] Compared to ECG 11/21/2024 01:43:01 Left-axis deviation now present Low QRS voltage now present Myocardial infarct finding still present /store/S0/[id number]/ecg/[id number].pdf
--- NOTE | 2025-09-09 13:56 | EDRME_ITS ---
Rapid Medical Screening Exam [facility] Arrival date/time: 09/09/25 13:36 This is a 69-year-old female that comes into the emergency room with complaints of chest pain shortness of breath and elevated blood pressure. Patient states that the chest pain and shortness of breath started 2 days ago. Patient has a history of high blood pressure, high cholesterol. Patient states she took her losartan and carvedilol already this morning but her blood pressure still high. I have greeted and performed a focused initial assessment of this patient. Initial appropriate labs ordered at this time. A comprehensive ED assessment and evaluation of the patient and analysis of all test and completion of medical decision making process will be conducted by additional ED provider. Chief Complaint: General Adult/Misc Complain Time Seen by Provider: 09/09/25 13:46 Vital signs: Vital Signs Temperature 97.9 F 09/09/25 13:47 Pulse Rate 83 09/09/25 13:47 Respiratory Rate 18 09/09/25 13:47 Blood Pressure 194/114 H 09/09/25 13:47 Pulse Oximetry (%) 96 09/09/25 13:47 Oxygen Delivery Method Room Air 09/09/25 13:47 Exam: Alert and oriented breathing even and unlabored cap refill less than 2 seconds, GCS 15 Clinical Impression: PR, hypertensive urgency, uncontrolled high blood pressure differential
[2025-09-09] MEDS: LABETALOL INJ 5 MG/ML VIAL 20 ML 10 MG IVP (14:40)
--- NOTE | 2025-09-09 14:49 | PD.EDRECHK ---
ED Recheck Abnl Lab Rx-RME/HPI General Chief Complaint: General Adult/Misc Complain Stated Complaint: HIGH BP, 171/101, CHEST PAIN X 2 DAYS, SOB Time Seen by Provider: 09/09/25 13:46 Arrival date/time: 09/09/25 13:36 RME / HPI RME / HPI narrative: 09/09/25 13:36 This is a 69-year-old female that comes into the emergency room with complaints of chest pain shortness of breath and elevated blood pressure. Patient states that the chest pain and shortness of breath started 2 days ago. Patient has a history of high blood pressure, high cholesterol. Patient states she took her losartan and carvedilol already this morning but her blood pressure still high. I have greeted and performed a focused initial assessment of this patient. Initial appropriate labs ordered at this time. A comprehensive ED assessment and evaluation of the patient and analysis of all test and completion of medical decision making process will be conducted by additional ED provider. DR. STANTON MAIN ED EVALUATION: 69-year-old female with a history of primary hypertension and diverticulosis presents to the Emergency Department for elevated blood pressure, headache, chest pain, and shortness of breath. The patient reports that her blood pressure has been high since yesterday. She experienced a mild headache yesterday and today, along with non-radiating chest pain and shortness of breath. All symptoms began yesterday. She denies vision changes, nausea, vomiting, dizziness, or weakness. No recent medication changes or missed doses. Her primary care physician is Dr. Henao and her fermenter helper is Dr. Reed. Related Data Home Medications ?Medication ?Instructions ?Recorded ?Confirmed losartan 100 mg tablet 100 mg PO QDAY 12/31/23 11/21/24 Previous Rx's ?Medication ?Instructions ?Recorded aspirin 81 mg tablet,delayed 81 mg PO QDAY #30 tabs 11/22/24 release atorvastatin 40 mg tablet 40 mg PO QDAY #30 tabs 11/22/24 nifedipine 30 mg tablet,extended 30 mg PO QDAY #30 tabs 11/22/24 release Allergies Allergy/AdvReac Type Severity Reaction Status Date / Time No Known Allergies Allergy Verified 09/09/25 13:40 Review of Systems Review of Systems Systems Reviewed: All systems reviewed, normal except as documented Past Medical History Past Medical History CARDIAC: Positive Hypertension GASTROINTESTINAL: Positive Gastrointestinal Disorders ( MASS IN THE STOMACH ) and Diverticulosis OTHER HISTORY: Positive Chicken Pox, Measles and Mumps Family History FAMILY HISTORY: Positive Family Cardiac Disorders (parents HTN) Surgical History SURGICAL: Positive Hysterectomy Social History SMOKING STATUS: Never smoker SUBSTANCE USE: does not use ALCOHOL: Never ED Exam Narrative Physical exam: GENERAL APPEARANCE: alert and oriented x 4, well-developed, well-nourished, no acute distress VITALS: All vitals were reviewed and the pulse ox is 97% on room air, which is normal according to my interpretation. HEENT: Normocephalic, atraumatic; pupils equal, round, reactive to light; EOMI; mucous membranes pink, moist; oropharynx clear NECK: Supple LUNGS: CTABL; no wheezes, no rales, no rhonchi HEART: Regular rate and rhythm; 1/6 systolic murmur at the right upper sternal border ABDOMEN: non distended; normal BS; soft, no tenderness, no guarding, no rebound; no masses, no organomegaly, no hernia BACK: no CVA tenderness EXTREMITIES: atraumatic; no edema NEUROLOGIC: awake; alert and oriented x4; cranial nerves II-XII grossly intact; no focal sensory or motor deficits PSYCHIATRIC: appropriate mood and affect SKIN: warm, dry, normal color; no rashes Course Quality Measures none Orders Category Date Time Status EKG (ED ONLY) *Do not use* NOW Care 09/09/25 13:55 Completed EKG (ED ONLY) *Do not use* NOW Care 09/09/25 13:56 Completed EKG (ED Only) Stat Exams 09/09/25 13:55 Draft EKG (ED Only) Stat Exams 09/09/25 13:56 Ordered XR chest 1V Stat Exams 09/09/25 13:55 Completed BNP [B-Type Natriuretic Peptide] Stat Lab 09/09/25 14:27 Completed CBC Stat Lab 09/09/25 14:27 Completed Comprehensive Metabolic Panel Stat Lab 09/09/25 14:27 Completed Troponin I Stat Lab 09/09/25 14:27 Completed Labetalol IV [Trandate IV] Med 09/09/25 14:31 Discontinued 10 mg IVP X1 ONE hydrALAZINE INJ [Apresoline Inj] Med 09/09/25 15:31 Discontinued 10 mg IVP X1 ONE Vital Signs Vital signs: Vital Signs Temperature 97.9 F 09/09/25 13:47 Pulse Rate 83 09/09/25 13:47 Respiratory Rate 18 09/09/25 13:47 Blood Pressure 194/114 H 09/09/25 13:47 Pulse Oximetry (%) 96 09/09/25 13:47 Oxygen Delivery Method Room Air 09/09/25 13:47 Recheck / Abnormal Lab / Rx MDM Narrative MDM Narrative:: I, Janet Renee am scribing for and in the presence of Dr. Stanton. Patient data External records reviewed:: [facility] previous records Clinical information provided by:: patient Social determinants that could affect healthcare access:: none Patient has the following chronic illnesses:: Primary hypertension and diverticulosis. Her primary care physician is Dr. Henao and her fermenter helper is Dr. Reed. How is presenting disease/condition affected by chronic disease/condition?: caused by Evaluation data The following diagnostics were reviewed and interpreted by me:: lab results, radiology exam(s) and EKG tracing(s) (My interpretation: EKG performed at 1358 hours, sinus rhythm, rate 74, Q wave in V1, low voltage in V2, poor R wave progression, T wave inversion in V1-V2, no acute ischemic changes) Lab and/or radiology exams considered but not ordered:: none Interpretation Summary: Procedure(s): XR chest 1V Accession Number(s): [id number] cc: Isauro Mendez MD; Marcella Patrick NP~ EXAMINATION: AP chest single view TECHNIQUE: AP portable sitting chest single view Date and time: September 09, 2025, 1405 hours INDICATIONS: Shortness of breath today. FINDINGS: Normal heart size No pneumonia or pulmonary edema The osseous structures are intact IMPRESSION: No active disease Dictated By: Isauro Mendez MD Medications / Prescriptions Medications or Prescriptions considered but not ordered:: none Medication administrations:: Medication Administration History Discontinued Medications Hydralazine HCl (Hydralazine Inj 20 Mg/Ml Vial) 10 mg IVP X1 ONE Stop: 09/09/25 15:32 Last Admin: 09/09/25 15:36 Dose: 10 mg Documented By: AB Labetalol HCl (Labetalol Inj 5 Mg/Ml Vial 20 Ml) 10 mg IVP X1 ONE Stop: 09/09/25 14:32 Last Admin: 09/09/25 14:40 Dose: 10 mg Documented By: DB see above Consultations Consultation(s) initiated? (list below): No Diagnosis Recheck Differential Diagnosis: other (Hypertensive urgency, acute coronary syndrome, and anxiety-related chest pain.) Most likely diagnosis given after review of the tests above:: Hypertensive urgency Admission Indicated Admission indicated?: not indicated Admission Request Was there a request for admission?: No Disposition Plan Disposition Plan: Discharge Discharge Attestation Discharge Attestation: The patient and all family members were given an opportunity to ask questions and understood the discharge instructions. Discharge instructions specifically effects, indications for sooner follow up or return to the emergency department, and the expected course of current diagnosis. Patient condition: Stable Discharge Plan Plan Patient Disposition: HOME (Self Care) Prescriptions/Referrals Prescriptions/Med Rec: No Action aspirin 81 mg tablet,delayed release (DR/EC) 81 mg PO QDAY Qty: 30 0RF atorvastatin 40 mg tablet 40 mg PO QDAY Qty: 30 0RF nifedipine 30 mg tablet extended release 30 mg PO QDAY Qty: 30 0RF losartan 100 mg tablet 100 mg PO QDAY Patient Comments: take 1 tablet by mouth once daily for blood pressure Referrals: Naz Ortez MD [Primary Care Provider, Family Practice] - In 1 week Problem List Clinical Impression: Hypertensive urgency Patient/Caregiver Discharge Instructions Education Materials: ED High Blood Pressure ... Print Language: Hungarian Stand Alone Forms: Gloria Award Info., Patient Portal Info Letter
[2025-09-09 15:05] LABS: Basophils # (Auto) 0.1 Thou/mm3 (0.0-0.2); Basophils % (Auto) 1 % (0-2.5); Eosinophils # (Auto) 0.2 Thou/mm3 (0.0-0.5); Eosinophils % (Auto) 2 % (0-10); Hematocrit 41.7 % (36.0-46.0); Hemoglobin 13.5 g/dL (12.0-16.0); Immature Granulocytes Auto 0.03 Thou/mm3 (0.00-0.00); Lymphocytes # (Auto) 2.6 Thou/mm3 (1.0-4.8); Lymphocytes % (Auto) 30 % (10-50); Mean Corpuscular HGB Conc 32.4 g/dl (31.0-37.0); Mean Corpuscular Hemoglobin 25.3 pg (25.0-35.0); Mean Corpuscular Volume 78 fL (80-100); Monocytes # (Auto) 0.5 Thou/mm3 (0.0-0.8); Monocytes % (Auto) 6 % (0-12); Neutrophils # (Auto) 5.4 Thou/mm3 (1.8-7.7); Neutrophils % (Auto) 61 % (37-80); Nucleated Red Blood Cell # 0.00 Thou/mm3 (0.00-0.00); Nucleated Red Blood Cell % 0 /100 WBC (0); Platelet Count 299 Thou/mm3 (140-440); RDW Standard Deviation 43.7 fL (36.4-46.3); Red Blood Count 5.34 Miln/mm3 (4.00-5.20); White Blood Count 8.8 Thou/mm3 (3.6-11.0)
[2025-09-09 15:24] LABS: Alanine Aminotransferase 11 U/L (10-49); Albumin, Serum 4.8 gm/dL (3.4-4.8); Albumin/Globulin Ratio 2.0 (1.2-2.2); Alkaline Phosphatase 144 U/L (46-116); Anion Gap 11 (7-16); Aspartate Amino Transferase 17 U/L (0-34); BUN/Creatinine Ratio 17 Ratio (12-20); Bilirubin,Total 1.2 mg/dL (0.3-1.2); Blood Urea Nitrogen 15 mg/dL (9-23); Calcium 9.3 mg/dL (8.3-10.6); Calcium (Corrected) 9.3 mg/dL (8.5-10.1); Carbon Dioxide 23.9 mMol/L (20.0-31.0); Chloride 108 mMol/L (98-107); Creatinine (Component) 0.9 mg/dL (0.6-1.3); Globulin 2.4 gm/dL (2.3-3.5); Glucose 137 mg/dL (74-106); Osmolality,Calculated 287 (275-295); Potassium 3.5 mMol/L (3.4-5.1); Sodium 143 mMol/L (136-145); Total Protein 7.2 gm/dL (5.7-8.2); Troponin I < 0.020 ng/mL (0.0-0.045); eGFR > 60 See Note
[2025-09-09] MEDS: hydrALAZINE INJ 20 MG/ML VIAL 10 MG IVP (15:36)
[2025-09-09 15:39] LABS: B-Type Natriuretic Peptide 55 pg/mL (0-100)
== END 2025-09-09 17:28 | disposition home or self-care (01) ==
PROVIDERS: Nurse Practitioner Family; Emergency Provider Emergency Medicine; PCP Family Medicine
DX: I16.0 Hypertensive urgency (principal); E78.00 Pure hypercholesterolemia, unspecified
CPT/HCPCS: 36415; 71045; 80053; 83880; 84484; 85025; 93005; 99283; J0360; J3490; J1920